=== PATIENT | female | born 1990 | race Caucasian/White ===

== ENCOUNTER 2017-06-16 17:31 | Emergency (ER) | payer OTHER ==
[~2017-06-16] VITALS: Ht 154.9 cm; Wt 56.1 kg
[~2017-06-16 17:31] MED LIST: ACET500T33 PO; ALPR0.5T10 PO; AMOX1TAB61 PO; CLAR500T3 PO; DESL5TAB PO; FLUT1DIS IH; IBUP200C6 PO; MEDR150D3 IM; PRED10TA16 PO; PRED5POW MC; allergy shots
[2017-06-16 17:51] VITALS: BP 120/76
--- NOTE | 2017-06-16 18:41 | PHYS DOC ---
Past History Past Medical History: No Pertinent History Additional Past Medical Histor: back/jaw pain seasional allergies Past Surgical History: No Surgical History Additional Past Surgical Histo: eye Smoking: Cigarettes Additional Smoking Information: PACK A DAY Alcohol Use: Rarely Drug Use: None Adult General Chief Complaint Chief Complaint: MULTIPLE COMPLAINTS [facility] HPI 26-year-old female smoker who presents to the emergency department with her son is being seen for an insect bite. Miss haddad checked in because she's had a dry cough which is improving over the last 2 days. She states that sometimes worse when she lays down. She is not short of breath. She states he sometimes has some chest wall soreness when she coughs but she does not have exertional chest pain nor does she have pleuritic pain. She is not short of breath at rest. She has no productive cough or fever. She does still smoke daily. She describes that the cough is definitely improving. Patient has not taken any cough medicines. No fevers chills sweats or shaking chills. No headache or stiff neck. Review of Systems Review of Systems Constitutional: Denies fever or chills [] Eyes: Denies change in visual acuity, redness, or eye pain [] HENT: Denies nasal congestion or sore throat [] Respiratory: Denies cough or shortness of breath [] Cardiovascular: No additional information not addressed in HPI [] GI: Denies abdominal pain, nausea, vomiting, bloody stools or diarrhea [] : Denies dysuria or hematuria [] Musculoskeletal: Denies back pain or joint pain [] Integument: Denies rash or skin lesions [] Neurologic: Denies headache, focal weakness or sensory changes [] Endocrine: Denies polyuria or polydipsia [] Allergies Allergies Allergies Coded Allergies Type Severity Reaction Last Updated Verified No Known Drug Allergies 01/31/14 No Physical Exam Physical Exam O appearing patient. Clear lungs respiratory rate 98% pulse ox on room air. Completely benign exam Constitutional: Well developed, well nourished, no acute distress, non-toxic appearance. [] HENT: Normocephalic, atraumatic, bilateral external ears normal, oropharynx moist, no oral exudates, nose normal. [] Eyes: PERRLA, EOMI, conjunctiva normal, no discharge. [] Neck: Normal range of motion, no tenderness, supple, no stridor. [] Cardiovascular:Heart rate regular rhythm, no murmur [] Lungs & Thorax: Bilateral breath sounds clear to auscultation [] Abdomen: Bowel sounds normal, soft, no tenderness, no masses, no pulsatile masses. [] Skin: Warm, dry, no erythema, no rash. [] Back: No tenderness, no CVA tenderness. [] Extremities: No tenderness, no cyanosis, no clubbing, ROM intact, no edema. [] Neurologic: Alert and oriented X 3, normal motor function, normal sensory function, no focal deficits noted. [] Psychologic: Affect normal, judgement normal, mood normal. [] Current Patient Data Vital Signs Vital Signs Date Time Temp Pulse Resp B/P (MAP) Pulse Ox O2 Delivery O2 Flow Rate FiO2 06/16/17 17:51 98.3 81 20 98 Room Air EKG EKG [] Radiology/Procedures Radiology/Procedures [] Course & Med Decision Making Course & Med Decision Making Pertinent Labs and Imaging studies reviewed. (See chart for details) Signs and symptoms consistent with very mild bronchitis and resultant mild chest wall soreness with cough only in a well-appearing patient with normal respiratory rate and pulse ox clear lungs no coughing whatsoever in ED. Recommended to patient that she take Mucinex DM [id number] as needed and to quit smoking. No further workup or treatment indicated.. Patient agrees with outpatient follow-up and strict return precautions given [] Dragon Disclaimer Dragon Disclaimer This chart was dictated in whole or in part using Voice Recognition software in a busy, high-work load, and often noisy Emergency Department environment. It may contain unintended and wholly unrecognized errors or omissions. Departure Departure: Impression: Primary Impression: Tobacco abuse Additional Impressions: Bronchitis Bronchitis due to tobacco use Chest wall muscle strain Disposition: HOME, SELF-CARE Condition: STABLE Referrals: SANDRA STOKES MD (PCP) Additional Instructions: As we discussed at length, it is critically important that you quit smoking for your long-term health as well as for the health of your child and others around you. It appears that your cough which is now improving as a result of bronchitis likely a result of your smoking. If you find you have cough use over- the-counter Mucinex DM. This has guaifenesin which helps break up any mucus in your lungs and dextromethorphan which help suppress cough. This is for symptomatic treatment only if you feel he needed help with your cough and congestion. Follow-up with your doctor in 1-2 days and return immediately for new severe or worsening symptoms Problem Qualifiers YEIMY BRASHER MD Jun 16, 2017 18:41
== END 2017-06-16 18:53 | disposition home or self-care (01) ==
LOC: ER 17:31
DX: J40 Bronchitis, not specified as acute or chronic (principal); S29.011A Strain of muscle and tendon of front wall of thorax, initial encounter; F17.210 Nicotine dependence, cigarettes, uncomplicated; X58.XXXA Exposure to other specified factors, initial encounter; Y93.89 Activity, other specified; Y99.8 Other external cause status; Y92.89 Other specified places as the place of occurrence of the external cause
CPT/HCPCS: 99281

== ENCOUNTER 2019-09-17 14:42 | Emergency (ER) | payer BC, OTHER ==
[~2019-09-17] VITALS: Ht 154.9 cm; Wt 72.5 kg
[~2019-09-17 14:42] MED LIST changes: +IBUP-1390 PO; -IBUP200C6 PO
[2019-09-17] MEDS ORDERED: CIPR7.5D LEFT EAR (15:03)
--- NOTE | 2019-09-17 15:05 | PHYS DOC ---
Adult General Chief Complaint Chief Complaint ear trauma HPI HPI 28 years old female presented emergency department foreign-body object went in the right ear foreign body was removed immediately patient noticed some blood no change in hearing Review of Systems Review of Systems Constitutional: Denies fever or chills [] Eyes: Denies change in visual acuity, redness, or eye pain [] HENT: Denies nasal congestion or sore throat [] Respiratory: Denies cough or shortness of breath [] Cardiovascular: No additional information not addressed in HPI [] GI: Denies abdominal pain, nausea, vomiting, bloody stools or diarrhea [] : Denies dysuria or hematuria [] Musculoskeletal: Denies back pain or joint pain [] Integument: Denies rash or skin lesions [] Neurologic: Denies headache, focal weakness or sensory changes [] Endocrine: Denies polyuria or polydipsia [] All other systems were reviewed and found to be within normal limits, except as documented in this note. Allergies Allergies Allergies Coded Allergies Type Severity Reaction Last Updated Verified No Known Drug Allergies 09/17/19 No Physical Exam Physical Exam Constitutional: Well developed, well nourished, no acute distress, non-toxic appearance. [] HENT: Normocephalic, atraumatic, dry blood in the right ear canal unable to evaluate the tympanic membrane due to blood oropharynx moist, no oral exudates, nose normal. [] Eyes: PERRLA, EOMI, conjunctiva normal, no discharge. [] Neck: Normal range of motion, no tenderness, supple, no stridor. [] Cardiovascular:Heart rate regular rhythm, no murmur [] Lungs & Thorax: Bilateral breath sounds clear to auscultation [] Abdomen: Bowel sounds normal, soft, no tenderness, no masses, no pulsatile masses. [] Skin: Warm, dry, no erythema, no rash. [] Back: No tenderness, no CVA tenderness. [] Extremities: No tenderness, no cyanosis, no clubbing, ROM intact, no edema. [] Neurologic: Alert and oriented X 3, normal motor function, normal sensory function, no focal deficits noted. [] Psychologic: Affect normal, judgement normal, mood normal. [] EKG EKG [] Radiology/Procedures Radiology/Procedures [] Course & Med Decision Making Course & Med Decision Making Pertinent Labs and Imaging studies reviewed. (See chart for details) [] Final Impression Final Impression [] Problems: (1) Trauma of ear canal Qualifiers: Qualified Codes: S09.91XA - Unspecified injury of ear, initial encounter Dragon Disclaimer Dragon Disclaimer This electronic medical record was generated, in whole or in part, using a voice recognition dictation system. DAPHNIE HADDAD MD Sep 17, 2019 15:05
[2019-09-17 15:35] VITALS: BP 111/80
== END 2019-09-17 15:35 | disposition home or self-care (01) ==
LOC: ER 14:42
DX: S09.91XA Unspecified injury of ear, initial encounter (principal); X58.XXXA Exposure to other specified factors, initial encounter; Y93.89 Activity, other specified; Y92.89 Other specified places as the place of occurrence of the external cause; Y99.8 Other external cause status
CPT/HCPCS: 99283

== ENCOUNTER 2020-01-21 09:35 | Emergency (ER) | payer SELFPAY ==
[~2020-01-21] VITALS: Ht 152.4 cm; Wt 74.8 kg
[~2020-01-21 09:35] MED LIST changes: +CIPR7.5D LEFT EAR
[2020-01-21 09:44] VITALS: BP 111/63
[2020-01-21] MEDS ORDERED: CLINDAMYCIN HCL 150 MG CAPSULE ONE (09:54)
[2020-01-21] MEDS ORDERED: NEOMY/BACITR/POLYMYXIN OINT PACKET. TP ONE ×2 (09:54→10:00)
[2020-01-21] MEDS ORDERED: CLIN300C8 PO (09:54)
--- NOTE | 2020-01-21 09:54 | PHYS DOC ---
Past History Additional Past Medical Histor: back/jaw pain seasional allergies Past Surgical History: Other Additional Past Surgical Histo: eye Smoking: Cigarettes Alcohol Use: Rarely Drug Use: None General Adult EDM: Chief Complaint: SKIN PROBLEM HPI: HPI: 29-year-old female presents with report of "spider bite" to her right anterior abdomen. Patient denies actually seeing an insect. Reports has had a central a edi with surrounding redness which is progressively gotten worse. Reports his been using alcohol on the area and some dribbling atraumatic ointment and a Band-Aid. Reports was able to express some purulent material from the center of it. Denies fever or chills. Denies . Review of Systems: Review of Systems: Constitutional: Denies fever or chills Eyes: Denies redness or eye pain HENT: Denies nasal congestion or sore throat Respiratory: Denies cough or shortness of breath Cardiovascular: Denies chest pain or palpitations GI: Denies abdominal pain or vomiting; reports nausea : Denies dysuria or hematuria Musculoskeletal: Denies back pain or joint pain Integument: Reports redness to abdomen Neurologic: Denies headache, focal weakness or sensory changes Complete systems were reviewed and found to be within normal limits, except as documented in this note. Allergies: Allergies: Allergies Coded Allergies Type Severity Reaction Last Updated Verified No Known Drug Allergies 09/17/19 No Physical Exam: PE: Constitutional: Well developed, well nourished, no acute distress, non-toxic appearance HENT: Normocephalic, atraumatic Eyes: Conjunctiva normal, no discharge Neck: Normal range of motion, supple Lungs & Thorax: No respiratory distress, equal chest rise and fall Abdomen: Soft, no tenderness, right lower quadrant 2 cm central indurated area with surrounding 4 cm erythema consistent for abscess with surrounding celluli tis Skin: Warm, dry, abscess with surrounding cellulitis as above which upon expression did produce some purulent discharge Neurologic: Alert and oriented X 3, no focal deficits noted Psychologic: Affect normal, judgment normal Current Patient Data: Vital Signs: Vital Signs Date Time Temp Pulse Resp B/P (MAP) Pulse Ox O2 Delivery O2 Flow Rate FiO2 01/21/20 09:44 97.4 75 18 111/63 (79) 99 Room Air EKG: EKG: [] Radiology/Procedures: Radiology/Procedures: [] Course & Med Decision Making: Course & Med Decision Making Patient presents with history of present illness and physical exam consistent for abscess with surrounding cellulitis. Abscess is currently draining. No fluctuance appreciated. Wound cleaned and dressed with antibiotic ointment. Empiric oral antibiotic initiated. Patient stable for discharge with outpatient follow-up with PCP. Discussed findings and plan with patient, who acknowledges understanding and agreement. Griselda Disclaimer: Dragmarcellus Disclaimer: This electronic medical record was generated, in whole or in part, using a voice recognition dictation system. Departure Departure: Impression: Primary Impression: Cellulitis and abscess of trunk Disposition: HOME, SELF-CARE Condition: STABLE Referrals: PCP,SAMUEL (PCP) Patient Instructions: Abscess, [id number], Cellulitis, [id number] Additional Instructions: Do not soak your wound. You may shower. Clean wound daily with soap and water. Change dressing 2 times daily. Use over the counter antibiotic ointment with each dressing change. Scripts Clindamycin Hcl (CLINDAMYCIN HCL) 300 Mg Capsule 1 CAP PO TID for Abscess/Cellulitis for 10 Days, #30 CAP Prov: YEIMY MENDEZ DO 01/21/20 YEIMY MENDEZ DO Jan 21, 2020 09:54
[2020-01-21] MEDS ORDERED: CLINDAMYCIN HCL 150 MG CAPSULE PO ONE (10:00)
== END 2020-01-21 10:00 | disposition home or self-care (01) ==
LOC: ER 09:35
DX: L03.311 Cellulitis of abdominal wall (principal); L02.211 Cutaneous abscess of abdominal wall; F17.210 Nicotine dependence, cigarettes, uncomplicated
CPT/HCPCS: 99283

== ENCOUNTER 2020-03-01 12:45 | Emergency (ER) | payer MEDICAID ==
[~2020-03-01] VITALS: Ht 152.4 cm; Wt 63.6 kg
[~2020-03-01 12:45] MED LIST changes: +CLIN300C8 PO
[2020-03-01 13:08] VITALS: BP 115/63
[2020-03-01 13:46] LABS: BILIRUBIN,URINE NEG (NEG); CLARITY,URINE HAZY; COLOR,URINE YELLOW; GLUCOSE,URINE NEG (NEG); NITRITE,URINE NEG (NEG); UROBILINOGEN,URINE 0.2 mg/dL (0.2 mg/dL)
[2020-03-01 13:47] LABS: BACTERIA,URINE FEW /HPF (0-FEW); SQUAMOUS EPITHELIAL CELL,UR FEW /LPF; WBC,URINE 20-40 /HPF (0-4)
[2020-03-01 13:48] LABS: BASO % 0 % (0-3); EOS % 0 % (0-3); HEMATOCRIT 37.3 % (36.0-47.0); HEMOGLOBIN 12.6 g/dL (12.0-15.5); LYMPH # 1.8 x10^3/uL (1.0-4.8); LYMPH % 24 % (24-48); MEAN CORPUSCULAR HEMOGLOBIN 30 pg (25-35); MEAN CORPUSCULAR HGB CONC 34 g/dL (31-37); MEAN CORPUSCULAR VOLUME 89 fL (79-100); MONO # 0.5 x10^3/uL (0.0-1.1); MONO % 7 % (0-9); NEUT # 5.1 x10^3uL (1.8-7.7); NEUT % 69 % (31-73); PLATELET COUNT 215 x10^3/uL (140-400); RED CELL DISTRIBUTION WIDTH 13.1 % (11.5-14.5); WHITE BLOOD COUNT 7.4 x10^3/uL (4.0-11.0)
[2020-03-01 13:55] LABS: CALCIUM 8.8 mg/dL (8.5-10.1); CREATININE 0.6 mg/dL (0.6-1.0); GFR 117.4; POTASSIUM 3.8 mmol/L (3.5-5.1)
[2020-03-01 14:02] LABS: ALBUMIN 3.7 g/dL (3.4-5.0); ALBUMIN/GLOBULIN RATIO 0.9 (1.0-1.7); TOTAL BILIRUBIN 0.2 mg/dL (0.2-1.0); TOTAL PROTEIN 7.6 g/dL (6.4-8.2)
--- NOTE | 2020-03-01 14:37 | PHYS DOC ---
Past History Past Medical History: No Pertinent History Additional Past Medical Histor: back/jaw pain seasional allergies Past Surgical History: No Surgical History Additional Past Surgical Histo: eye Smoking: Cigarettes Alcohol Use: None Drug Use: None General Adult EDM: Chief Complaint: TEST HPI: HPI: Patient is a 29-year-old female who presents with complaint of lower abdominal pressure with some vaginal spotting. She denies any vaginal discharge. She states that she has been having some queasiness and states that she felt like she could be so took a test at home. She states the test returned positive. Patient states that she is not sure how long she is because she was on Depo-Provera for a long time and she has been very irregular since that time. Patient denies any vomiting or diarrhea. [] Review of Systems: Review of Systems: Constitutional: Denies fever or chills Respiratory: Denies cough or shortness of breath Cardiovascular: Denies chest pain or edema GI: Complains of lower abdominal pressure without vomiting or diarrhea : Denies dysuria. Complains of vaginal spotting Integument: Denies rash Neurologic: Denies headache, focal weakness or sensory changes A full 10 point review of systems has been reviewed and is otherwise negative. Heart Score: Risk Factors: Risk Factors: DM, Current or recent (<one month) smoker, HTN, HLP, family history of CAD, obesity. Risk Scores: Score 0 - 3: 2.5% MACE over next 6 weeks - Discharge Home Score 4 - 6: 20.3% MACE over next 6 weeks - Admit for Clinical Observation Score 7 - 10: 72.7% MACE over next 6 weeks - Early Invasive Strategies Allergies: Allergies: Allergies Coded Allergies Type Severity Reaction Last Updated Verified No Known Drug Allergies 09/17/19 No Physical Exam: PE: Constitutional: Well developed, well nourished, no acute distress, non-toxic appearance. [] HENT: Normocephalic, atraumatic, bilateral external ears normal, oropharynx moist, no oral exudates, nose normal. [] Eyes: PERRLA, EOMI, conjunctiva normal, no discharge. [] Neck: Normal range of motion, no tenderness, supple, no stridor. [] Cardiovascular: Regular rate and rhythm [] Lungs & Thorax: Bilateral breath sounds clear to auscultation [] Abdomen: Bowel sounds normal, soft, no tenderness. [] Skin: Warm, dry, no erythema, no rash. [] Extremities: No tenderness, no cyanosis, no clubbing, ROM intact, no edema. [] Neurologic: Alert and oriented X 3, no focal deficits noted. [] Current Patient Data: Labs: Laboratory Tests Test 03/01/20 13:00 03/01/20 13:27 03/01/20 13:35 Urine Collection Type Unknown Urine Color Yellow Urine Clarity Hazy Urine pH 6.5 Urine Specific [place] 1.020 Urine Protein Neg (NEG-TRACE) Urine Glucose (UA) Neg mg/dL (NEG) Urine Ketones (Stick) Neg mg/dL (NEG) Urine Blood Neg (NEG) Urine Nitrite Neg (NEG) Urine Bilirubin Neg (NEG) Urine Urobilinogen Dipstick 0.2 mg/dL (0.2 mg/dL) Urine Leukocyte Esterase Mod (NEG) Urine RBC 3-5 /HPF (0-2) Urine WBC 20-40 /HPF (0-4) Urine Squamous Epithelial Cells Few /LPF Urine Bacteria Few /HPF (0-FEW) Urine Mucus Slight /LPF POC Urine HCG, Qualitative hcg positive (Negative) White Blood Count 7.4 x10^3/uL (4.0-11.0) Red Blood Count 4.20 x10^6/uL (3.50-5.40) Hemoglobin 12.6 g/dL (12.0-15.5) Hematocrit 37.3 % (36.0-47.0) Mean Corpuscular Volume 89 fL (79-100) Mean Corpuscular Hemoglobin 30 pg (25-35) Mean Corpuscular Hemoglobin Concent 34 g/dL (31-37) Red Cell Distribution Width 13.1 % (11.5-14.5) Platelet Count 215 x10^3/uL (140-400) Neutrophils (%) (Auto) 69 % (31-73) Lymphocytes (%) (Auto) 24 % (24-48) Monocytes (%) (Auto) 7 % (0-9) Eosinophils (%) (Auto) 0 % (0-3) Basophils (%) (Auto) 0 % (0-3) Neutrophils # (Auto) 5.1 x10^3uL (1.8-7.7) Lymphocytes # (Auto) 1.8 x10^3/uL (1.0-4.8) Monocytes # (Auto) 0.5 x10^3/uL (0.0-1.1) Eosinophils # (Auto) 0.0 x10^3/uL (0.0-0.7) Basophils # (Auto) 0.0 x10^3/uL (0.0-0.2) Maternal Serum HCG Beta Subunit 5817 mIU/mL (0-6) H Sodium Level 137 mmol/L (136-145) Potassium Level 3.8 mmol/L (3.5-5.1) Chloride Level 102 mmol/L (98-107) Carbon Dioxide Level 25 mmol/L (21-32) Anion Gap 10 (6-14) Blood Urea Nitrogen 8 mg/dL (7-20) Creatinine 0.6 mg/dL (0.6-1.0) Estimated GFR (Cockcroft-Gault) 117.4 BUN/Creatinine Ratio 13 (6-20) Glucose Level 90 mg/dL (70-99) Calcium Level 8.8 mg/dL (8.5-10.1) Total Bilirubin 0.2 mg/dL (0.2-1.0) Aspartate Amino Transferase (AST) 13 U/L (15-37) L Alanine Aminotransferase (ALT) 20 U/L (14-59) Alkaline Phosphatase 64 U/L (46-116) Total Protein 7.6 g/dL (6.4-8.2) Albumin 3.7 g/dL (3.4-5.0) Albumin/Globulin Ratio 0.9 (1.0-1.7) L Vital Signs: Vital Signs Date Time Temp Pulse Resp B/P (MAP) Pulse Ox O2 Delivery O2 Flow Rate FiO2 03/01/20 13:08 97.8 79 18 115/63 (80) 99 EKG: EKG: [] Radiology/Procedures: Radiology/Procedures: [] Course & Med Decision Making: Course & Med Decision Making Pertinent Labs and Imaging studies reviewed. (See chart for details) [] Dragon Disclaimer: Dragon Disclaimer: This electronic medical record was generated, in whole or in part, using a voice recognition dictation system. Departure Departure: Impression: Primary Impression: Positive blood test Disposition: HOME/RESIDENCE PRIOR TO ADM Condition: STABLE Referrals: PCP,NO (PCP) Patient Instructions: Abdominal Pain During , Form - Excuse from Work, School, or Physical Activity, , - First Trimester, Vaginal Bleeding During , First Trimester Additional Instructions: Keep appointment with health department for this coming week. I would recommend repeat quantitative hCG testing at that time. Justification of Admission: Justification of Admission: Justification of Admission Dx: N/A JOSÉ MIGUEL BOB Jr., DO Mar 01, 2020 14:37
== END 2020-03-01 14:23 | disposition home or self-care (01) ==
LOC: ER 12:45
DX: Z32.01 Encounter for pregnancy test, result positive (principal); O46.91 Antepartum hemorrhage, unspecified, first trimester; Z3A.00 Weeks of gestation of pregnancy not specified; O99.331 Smoking (tobacco) complicating pregnancy, first trimester
CPT/HCPCS: 36415; 80053; 81001; 81025; 84702; 85025; 87086; 99283

== ENCOUNTER 2020-03-06 08:54 | Emergency (ER) | payer MEDICAID ==
[~2020-03-06] VITALS: Ht 152.4 cm; Wt 70.1 kg
--- NOTE | 2020-03-06 09:11 | PHYS DOC ---
Past History Past Medical History: No Pertinent History Additional Past Medical Histor: back/jaw pain seasional allergies Past Surgical History: No Surgical History Additional Past Surgical Histo: eye Smoking: Cigarettes Alcohol Use: None Drug Use: None General Adult EDM: Chief Complaint: ABDOMINAL PAIN IN HPI: HPI: Patient is a 29-year-old female, who is , who presents to the emergency department for evaluation. She states she was seen in the emergency department this past weekend, with some abdominal cramping and vaginal spotting. Test results and ER visit note have been reviewed. The patient states that she has been doing more work at her job site than normal, secondary to her employer hiring some temporary help, putting more over the burden on her. She states that she feels that she overdid it last night and developed some increasing lower abdominal cramping, and some increased vaginal spotting this morning. She also admits to some whitish vaginal discharge. She denies any fevers or chills, dizziness or lightheadedness. She does feel generally fatigued. She is uncertain how far along she is this , she states she last received a Depo-Provera injection about a year ago, after she gave to another child, and has not had regular periods since that time. Her beta-hCG was over 5000 when she was in the emergency department recently. She has an appointment scheduled for her first [facility] REMOVER visit at [facility] next week. There are no alleviating or exacerbating factors to her symptoms. Review of Systems: Review of Systems: Constitutional: Denies fever or chills. Reports generalized fatigue Eyes: Denies change in visual acuity HENT: Denies nasal congestion or sore throat Respiratory: Denies cough or shortness of breath Cardiovascular: Denies chest pain or edema GI: Denies , nausea, vomiting, bloody stools or diarrhea : Denies dysuria Musculoskeletal: Denies back pain or joint pain Integument: Denies rash Neurologic: Denies headache, focal weakness or sensory changes Endocrine: Denies polyuria or polydipsia Lymphatic: Denies swollen glands Psychiatric: Denies depression or anxiety Heart Score: Risk Factors: Risk Factors: DM, Current or recent (<one month) smoker, HTN, HLP, family history of CAD, obesity. Risk Scores: Score 0 - 3: 2.5% MACE over next 6 weeks - Discharge Home Score 4 - 6: 20.3% MACE over next 6 weeks - Admit for Clinical Observation Score 7 - 10: 72.7% MACE over next 6 weeks - Early Invasive Strategies Allergies: Allergies: Allergies Coded Allergies Type Severity Reaction Last Updated Verified No Known Drug Allergies 03/06/20 No Physical Exam: PE: PHYSICAL EXAM: CONSTITUTIONAL: Well developed, well nourished HEAD: normocephalic, atraumatic EENT: PERRL, EOMI. Conjunctivae normal color, sclerae non-icteric; moist mucous membranes. NECK: Supple, non-tender; no meningismus. LUNGS: Lungs CTA, breathing even and unlabored. Normal air movement. HEART: Regular rate and rhythm, no murmur CHEST: No deformity; non-tender ABDOMEN: The abdomen is soft, there is mild diffuse lower abdominal tenderness to palpation, without focal tenderness, rebound, or guarding, the remainder of the abdomen is soft and non-tender, no masses or bruits. EXTREM: Normal ROM; no deformity, no calf tenderness. Normal pulses palpable in all extremities. There is no pedal edema. SKIN: No rash; no diaphoresis NEURO: Alert; normal speech and cognition; CN's grossly intact; strength grossly intact without focal deficit. BACK: No CVA TTP. PELVIC EXAM: Normal external genitalia. There is a moderate amount of whitish frothy vaginal discharge, with a trace amount of cervical blood, the cervix otherwise appears normal. There is no significant cervical motion tenderness, or focal adnexal or suprapubic/uterine tenderness to palpation or palpable masses. Exam was performed in the presence of the patient's nurse, Pam. Current Patient Data: Labs: Laboratory Tests Test 03/06/20 09:28 03/06/20 09:50 White Blood Count 6.6 x10^3/uL Red Blood Count 4.16 x10^6/uL Hemoglobin 12.6 g/dL Hematocrit 36.8 % Mean Corpuscular Volume 88 fL Mean Corpuscular Hemoglobin 30 pg Mean Corpuscular Hemoglobin Concent 34 g/dL Red Cell Distribution Width 13.2 % Platelet Count 194 x10^3/uL Neutrophils (%) (Auto) 69 % Lymphocytes (%) (Auto) 23 % Monocytes (%) (Auto) 7 % Eosinophils (%) (Auto) 1 % Basophils (%) (Auto) 0 % Neutrophils # (Auto) 4.6 x10^3uL Lymphocytes # (Auto) 1.5 x10^3/uL Monocytes # (Auto) 0.5 x10^3/uL Eosinophils # (Auto) 0.0 x10^3/uL Basophils # (Auto) 0.0 x10^3/uL Maternal Serum HCG Beta Subunit 3208 mIU/mL Sodium Level 139 mmol/L Potassium Level 3.8 mmol/L Chloride Level 104 mmol/L Carbon Dioxide Level 27 mmol/L Anion Gap 8 Blood Urea Nitrogen 11 mg/dL Creatinine 0.6 mg/dL Estimated GFR (Cockcroft-Gault) 117.4 Glucose Level 95 mg/dL Calcium Level 8.9 mg/dL Total Bilirubin 0.5 mg/dL Direct Bilirubin 0.2 mg/dL Aspartate Amino Transf (AST/SGOT) 16 U/L Alanine Aminotransferase (ALT/SGPT) 23 U/L Alkaline Phosphatase 67 U/L Total Protein 7.7 g/dL Albumin 3.7 g/dL Urine Collection Type Unknown Urine Color Straw Urine Clarity Hazy Urine pH 7.0 Urine Specific [place] 1.015 Urine Protein Neg Urine Glucose (UA) Neg mg/dL Urine Ketones (Stick) Neg mg/dL Urine Blood Mod Urine Nitrite Neg Urine Bilirubin Neg Urine Urobilinogen Dipstick 0.2 mg/dL Urine Leukocyte Esterase Large Urine RBC 6-10 /HPF Urine WBC 5-10 /HPF Urine Squamous Epithelial Cells Many /LPF Urine Bacteria Few /HPF EKG: EKG: [] Radiology/Procedures: Radiology/Procedures: PROCEDURE: OB <14 WKS EXAMINATION: OB <14 WKS, 03/06/2020 9:06 AM CLINICAL INDICATION: Vaginal spotting, pelvic pain. LMP unknown. TECHNIQUE: Grayscale and color Doppler ultrasound images of the pelvis via transabdominal and transvaginal approach her first trimester OB protocol. COMPARISON: None. FINDINGS: The uterus is anteverted and measures 9.1 x 5.2 x 4.4 cm. There is a gestational sac measuring 1.7 cm, consistent with a gestational age of 6 weeks 4 days. No embryo or yolk sac seen at this time. No subchorionic hemorrhage noted. The right ovary measures 2.4 x 2.1 x 1.6 cm. The left ovary measures 2.9 x 2.1 x 1.6 cm. There is blood flow seen to both ovaries. There is a 1.4 x 1.2 x 1.4 cm echogenic mass in the left adnexa immediately adjacent to the left ovary. This has some shadowing. No internal vascularity. No free fluid. IMPRESSION: 1. Intrauterine of uncertain viability with gestational sac measuring 1.7 cm but no embryo or yolk sac at this time. Based on gestational sac size, this is consistent with a gestational age of 6 weeks 4 days. Recommend short interval follow-up ultrasound and correlation with serial beta hCG. 2. Possible 1.4 cm echogenic mass in the left ovary or adnexa immediately adjacent to the ovary. A small dermoid cyst is possible. Recommend attention on follow-up exam[] Course & Med Decision Making: Course & Med Decision Making Pertinent Labs and Imaging studies reviewed. (See chart for details) The patient's condition remains stable at this time. Given her drop in beta- hCG, I suspect that the findings represent a failed gestation. I discussed importance of close follow-up with VARNISH REMOVER and return precautions in detail. [] WET PREP Final YEAST NONE SEEN TRICHOMONAS NONE SEEN CLUE CELLS NONE SEEN WBCS OCCASIONAL RBCS MODERATE SQUAMOUS EPS OCCASIONAL Dragon Disclaimer: Dragon Disclaimer: This electronic medical record was generated, in whole or in part, using a voice recognition dictation system. Departure Departure: Impression: Primary Impression: Vaginal bleeding during Additional Impression: Threatened miscarriage Disposition: 01 HOME/RESIDENCE PRIOR TO ADM Condition: STABLE Patient Instructions: Incomplete Miscarriage, Threatened Miscarriage Additional Instructions: Tylenol as needed for pain. Follow-up with your VARNISH REMOVER as scheduled next week. Return to medical care for any new or worsening symptoms, severe bleeding, pain, dizziness or lightheadedness, or any other new or concerning symptoms Justification of Admission: Justification of Admission: Justification of Admission Dx: N/A AILYN MELENDEZ MD Mar 06, 2020 09:11
[2020-03-06 09:53] LABS: BASO % 0 % (0-3); EOS % 1 % (0-3); HEMATOCRIT 36.8 % (36.0-47.0); HEMOGLOBIN 12.6 g/dL (12.0-15.5); LYMPH # 1.5 x10^3/uL (1.0-4.8); LYMPH % 23 % (24-48); MEAN CORPUSCULAR HEMOGLOBIN 30 pg (25-35); MEAN CORPUSCULAR HGB CONC 34 g/dL (31-37); MEAN CORPUSCULAR VOLUME 88 fL (79-100); MONO # 0.5 x10^3/uL (0.0-1.1); MONO % 7 % (0-9); NEUT # 4.6 x10^3uL (1.8-7.7); NEUT % 69 % (31-73); PLATELET COUNT 194 x10^3/uL (140-400); RED BLOOD COUNT 4.16 x10^6/uL (3.50-5.40); RED CELL DISTRIBUTION WIDTH 13.2 % (11.5-14.5); WHITE BLOOD COUNT 6.6 x10^3/uL (4.0-11.0)
[2020-03-06 10:01] LABS: CALCIUM 8.9 mg/dL (8.5-10.1); CREATININE 0.6 mg/dL (0.6-1.0); GFR 117.4; POTASSIUM 3.8 mmol/L (3.5-5.1)
[2020-03-06 10:09] LABS: ALBUMIN 3.7 g/dL (3.4-5.0); DIRECT BILIRUBIN 0.2 mg/dL (0.0-0.2); TOTAL BILIRUBIN 0.5 mg/dL (0.2-1.0); TOTAL PROTEIN 7.7 g/dL (6.4-8.2)
--- NOTE | 2020-03-06 10:15 | RAD ---
EXAMINATION: OB <14 WKS, 03/06/2020 9:06 AM CLINICAL INDICATION: Vaginal spotting, pelvic pain. LMP unknown. TECHNIQUE: Grayscale and color Doppler ultrasound images of the pelvis via transabdominal and transvaginal approach her first trimester OB protocol. COMPARISON: None. FINDINGS: The uterus is anteverted and measures 9.1 x 5.2 x 4.4 cm. There is a gestational sac measuring 1.7 cm, consistent with a gestational age of 6 weeks 4 days. No embryo or yolk sac seen at this time. No subchorionic hemorrhage noted. The right ovary measures 2.4 x 2.1 x 1.6 cm. The left ovary measures 2.9 x 2.1 x 1.6 cm. There is blood flow seen to both ovaries. There is a 1.4 x 1.2 x 1.4 cm echogenic mass in the left adnexa immediately adjacent to the left ovary. This has some shadowing. No internal vascularity. No free fluid. IMPRESSION: 1. Intrauterine of uncertain viability with gestational sac measuring 1.7 cm but no embryo or yolk sac at this time. Based on gestational sac size, this is consistent with a gestational age of 6 weeks 4 days. Recommend short interval follow-up ultrasound and correlation with serial beta hCG. 2. Possible 1.4 cm echogenic mass in the left ovary or adnexa immediately adjacent to the ovary. A small dermoid cyst is possible. Recommend attention on follow-up exam Electronically signed by: Vanessa Pinzon MD (03/06/2020 10:12 AM) [id number]
[2020-03-06 10:23] LABS: BACTERIA,URINE FEW /HPF (0-FEW); BILIRUBIN,URINE NEG (NEG); CLARITY,URINE HAZY; COLOR,URINE STRAW; GLUCOSE,URINE NEG (NEG); NITRITE,URINE NEG (NEG); SQUAMOUS EPITHELIAL CELL,UR MANY /LPF; UROBILINOGEN,URINE 0.2 mg/dL (0.2 mg/dL)
[2020-03-06 10:56] VITALS: BP 138/97
[2020-03-07 17:12] LABS: CHLAMYDIA PROBE Negative (Negative)
[2020-03-07] MEDS ORDERED: OXYC-325 PO (22:38)
== END 2020-03-06 10:57 | disposition home or self-care (01) ==
LOC: ER 08:54
DX: O20.0 Threatened abortion (principal); O99.331 Smoking (tobacco) complicating pregnancy, first trimester; Z3A.01 Less than 8 weeks gestation of pregnancy
CPT/HCPCS: 36415; 76801; 80048; 80076; 81001; 84702; 85025; 86900; 86901; 87086; 87491; 87591; 99284; Q0111

== ENCOUNTER 2020-03-07 16:57 | Emergency (ER) | payer MEDICAID ==
[~2020-03-07] VITALS: Ht 152.4 cm; Wt 70.1 kg
[2020-03-07] MEDS ORDERED: IV NORMAL SALINE 1,000ML 1,000 ML IV ONE (17:15)
[2020-03-07 17:46] LABS: BASO % 0 % (0-3); EOS % 0 % (0-3); HEMATOCRIT 34.6 % (36.0-47.0); HEMOGLOBIN 11.7 g/dL (12.0-15.5); LYMPH % 28 % (24-48); MEAN CORPUSCULAR HEMOGLOBIN 30 pg (25-35); MEAN CORPUSCULAR HGB CONC 34 g/dL (31-37); MEAN CORPUSCULAR VOLUME 89 fL (79-100); MONO # 0.5 x10^3/uL (0.0-1.1); MONO % 6 % (0-9); NEUT # 4.6 x10^3uL (1.8-7.7); NEUT % 65 % (31-73); PLATELET COUNT 219 x10^3/uL (140-400); RED CELL DISTRIBUTION WIDTH 13.2 % (11.5-14.5); WHITE BLOOD COUNT 7.1 x10^3/uL (4.0-11.0)
--- NOTE | 2020-03-07 17:52 | RAD ---
Exam: Ultrasound OB less than 14 weeks Indication: Heavy vaginal bleeding and Technique: Real-time grayscale and color Doppler images of the pelvis were obtained by the department cotton tier. Comparisons: 03/06/2020 FINDINGS: Uterus measures 14.0 x 6.1 x 4.7 cm. Within the endometrium at the lower uterine segment there is a 1.6 cm rounded anechoic structure. Right ovary measures 2.2 x 1.7 cm. Left ovary measures 3.3 x 2.8 x 2.0 cm. There is a hyperechoic rounded lesion within the left ovary measuring 1.7 cm. No free fluid. IMPRESSION: At the lower uterine segment in the endometrium there is a 1.6 cm rounded anechoic structure which may represent a gestational sac. This would be an abnormally low gestational sac position. No internal pole or yolk sac is identified. A live intrauterine gestation is not confirmed. Differential considerations include a failed versus an early IUP. Recommend correlation with serial beta hCG measurements and short-term follow-up ultrasound. Electronically signed by: Estela Hopkins MD (03/07/2020 5:48 PM) [id number]
--- NOTE | 2020-03-07 18:22 | PHYS DOC ---
Past History Additional Past Medical Histor: chronic back/jaw pain seasional allergies (YEIMY MENDEZ DO) Past Surgical History: Other Additional Past Surgical Histo: eye surgery (YEIMY MENDEZ DO) Smoking: Cigarettes Alcohol Use: None Drug Use: None (YEIMY MENDEZ DO) General Adult EDM: Chief Complaint: VAGINAL BLEEDING HPI: HPI: 29-year-old female G3, P2 presents with report of "heavy "vaginal bleeding that started this afternoon. Patient was here and seen in the emergency department at [place] yesterday morning for vaginal bleeding and . At that time ultrasound did not see yolk sac or pole and there was concern for possible threatened miscarriage. Patient reports she has been passing very heavy clots. Denies any dizziness or lightheadedness. Patient does report some pain to pelvic area. [facility] patient is Rh+. Beta hCG from yesterday was 3208. Patient had also been seen on 03/01/20 with some light spotting and report of home test being positive. [facility] confirmed and was found to be 5817. Patient reports she is unsure how far along she would be as she has irregular periods at baseline after being on Depo-Provera. Patient was to follow with OB at [place] next week for initial visit. (YEIMY MENDEZ DO) Review of Systems: Review of Systems: Constitutional: Denies fever or chills Eyes: Denies redness or eye pain HENT: Denies nasal congestion or sore throat Respiratory: Denies cough or shortness of breath Cardiovascular: Denies chest pain or palpitations GI: Reports lower abdominal/pelvic pain; denies nausea or vomiting CABLE DISPATCHER: Reports vaginal bleeding in : Denies dysuria or hematuria Musculoskeletal: Denies back pain or joint pain Integument: Denies rash or skin lesions Neurologic: Denies headache, focal weakness or sensory changes Complete systems were reviewed and found to be within normal limits, except as documented in this note. (YEIMY MENDEZ DO) Current Medications: Current Meds: Current Medications Medications (Trade) Dose Ordered Sig/Harley Start Time Stop Time Status Last Admin Dose Admin Sodium Chloride 1,000 ml @ 1,000 mls/hr 1X ONCE 03/07/20 17:15 03/07/20 18:14 03/07/20 17:15 1,000 MLS/HR (YEIMY MENDEZ DO) Allergies: Allergies: Allergies Coded Allergies Type Severity Reaction Last Updated Verified No Known Drug Allergies 03/06/20 No (YEIMY MENDEZ DO) Physical Exam: PE: Constitutional: Well developed, well nourished, dried blood on legs and hands HENT: Normocephalic, atraumatic Eyes: Conjunctiva normal, no discharge Neck: Normal range of motion, no tenderness, supple Lungs & Thorax: No respiratory distress, equal chest rise and fall Abdomen: Soft, mild lower quadrant tenderness, no guarding Skin: Warm, dry, no erythema, no rash Pelvic exam: 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[employer] [place], multiple large blood clots in vaginal vault, active bright red bleeding at cervical os, no retained tissue noted in os, os open, no CMT Extremities: No tenderness, ROM intact, no edema Neurologic: Alert and oriented X 3, no focal deficits noted Psychologic: Affect anxious, judgment normal (YEIMY MENDEZ DO) Current Patient Data: Labs: Laboratory Tests Test 03/07/20 17:30 White Blood Count 7.1 x10^3/uL (4.0-11.0) Red Blood Count 3.90 x10^6/uL (3.50-5.40) Hemoglobin 11.7 g/dL (12.0-15.5) L Hematocrit 34.6 % (36.0-47.0) L Mean Corpuscular Volume 89 fL (79-100) Mean Corpuscular Hemoglobin 30 pg (25-35) Mean Corpuscular Hemoglobin Concent 34 g/dL (31-37) Red Cell Distribution Width 13.2 % (11.5-14.5) Platelet Count 219 x10^3/uL (140-400) Neutrophils (%) (Auto) 65 % (31-73) Lymphocytes (%) (Auto) 28 % (24-48) Monocytes (%) (Auto) 6 % (0-9) Eosinophils (%) (Auto) 0 % (0-3) Basophils (%) (Auto) 0 % (0-3) Neutrophils # (Auto) 4.6 x10^3uL (1.8-7.7) Lymphocytes # (Auto) 2.0 x10^3/uL (1.0-4.8) Monocytes # (Auto) 0.5 x10^3/uL (0.0-1.1) Eosinophils # (Auto) 0.0 x10^3/uL (0.0-0.7) Basophils # (Auto) 0.0 x10^3/uL (0.0-0.2) Vital Signs: Vital Signs Date Time Temp Pulse Resp B/P (MAP) Pulse Ox O2 Delivery O2 Flow Rate FiO2 03/07/20 17:46 77 22 149/77 (101) 95 (YEIMY MENDEZ DO) EKG: EKG: [] (YEIMY MENDEZ DO) Radiology/Procedures: Radiology/Procedures: PROCEDURE: OB <14 WKS Exam: Ultrasound OB less than 14 weeks Indication: Heavy vaginal bleeding and Technique: Real-time grayscale and color Doppler images of the pelvis were obtained by the department building cleaner. Comparisons: 03/06/2020 FINDINGS: Uterus measures 14.0 x 6.1 x 4.7 cm. Within the endometrium at the lower uterine segment there is a 1.6 cm rounded anechoic structure. Right ovary measures 2.2 x 1.7 cm. Left ovary measures 3.3 x 2.8 x 2.0 cm. There is a hyperechoic rounded lesion within the left ovary measuring 1.7 cm. No free fluid. IMPRESSION: At the lower uterine segment in the endometrium there is a 1.6 cm rounded anechoic structure which may represent a gestational sac. This would be an abnormally low gestational sac position. No internal pole or yolk sac is identified. A live intrauterine gestation is not confirmed. Differential considerations include a failed versus an early IUP. Recommend correlation with serial beta hCG measurements and short-term follow-up ultrasound. Electronically signed by: Estela Hopkins MD (03/07/2020 5:48 PM) [id number] (YEIMY MENDEZ DO) Course & Med Decision Making: Course & Med Decision Making Pertinent Labs and Imaging studies reviewed. (See chart for details) Patient presents with HPI and physical exam consistent for active miscarriage. Patient had been seen initially on 03/01/2020 with beta-hCG of 5817. Patient was again seen yesterday with decrease in beta hCG down to 3208. Today patient's beta-hCG 2079. Ultrasounds reviewed from yesterday with signs of gestational sac without pole or yolk sac. Patient previously tested and found to be Rh+. Pelvic exam performed with excessive large blood clots noted in vaginal vault. Active bleeding still noted from cervical os. No products of conception noted in cervical os. Patient's vital signs stable. Hemoglobin decreased less than 1 g since yesterday. IV fluid hydration given. Pain addressed. Discussed case with Dr. Engel (GED TEACHER at [facility]) who recommends Oxytocin gtt and then recheck of H/H and re-evaluation for vaginal bleeding. Sign out given to Dr. Dao for further evaluation and final disposition. Discussed current findings and plan with patient, who acknowledges understanding and agreement. (YEIMY MENDEZ DO) Course & Med Decision Making See Dr. Mendez notes on pt. Pt. declined repeat pelvic at this time. Patient to follow-up with Dr. Engel. Patient expect some continued bleeding until passage of products of conception. Patient continue pad counts. Patient continue vitamins. For marked cramping patient may take a Percocet up to 4 times a day. Patient has a recheck hemoglobin in 3 days and beta-hCG. Impression: 1. Threatened 2. Anemia hemoglobin 9.6 3. Beta-hCG is 2079 4. Blood Type A+ (CAMERON DAO MD) Dragon Disclaimer: Dragon Disclaimer: This electronic medical record was generated, in whole or in part, using a voice recognition dictation system. (YEIMY MENDEZ DO) Departure Departure: Impression: Primary Impression: Miscarriage Referrals: PCP,NO (PCP) Scripts Oxycodone HCl/Acetaminophen (Percocet 5-325 mg Tablet) 1 Each Tablet 1 TAB PO PRN QID PRN for marked pain MDD 4 Tablet(s) for 5 Days, #30 TAB 0 Refills Prov: CAMERON DAO MD 03/07/20 Justification of Admission: Justification of Admission: Justification of Admission Dx: Comment: (pending) (YEIMY MENDEZ DO) Dragon Disclaimer This chart was dictated in whole or in part using Voice Recognition software in a busy, high-work load, and often noisy Emergency Department environment. It ma y contain unintended and wholly unrecognized errors or omissions. (CAMERON DAO MD) YEIMY MENDEZ DO Mar 07, 2020 18:22 CAMERON DAO MD Mar 07, 2020 18:39
[2020-03-07] MEDS ORDERED: NORMAL SALINE IV ONE (18:30)
[2020-03-07] MEDS ORDERED: OXYTOCIN IV ONE (18:30)
[2020-03-07] MEDS ORDERED: MORPHINE SULFATE 10 MG/ML SYRINGE. SQ ONE (20:15)
[2020-03-07 20:58] LABS: HEMATOCRIT 28.7 % (36.0-47.0); HEMOGLOBIN 9.6 g/dL (12.0-15.5); RED BLOOD COUNT 3.22 x10^6/uL (3.50-5.40); RED CELL DISTRIBUTION WIDTH 13.3 % (11.5-14.5); WHITE BLOOD COUNT 7.8 x10^3/uL (4.0-11.0)
[2020-03-07 22:11] VITALS: BP 110/45
[2020-03-07] MEDS ORDERED: OXYC-325 PO (22:38)
== END 2020-03-07 22:40 | disposition home or self-care (01) ==
LOC: ER 16:57
DX: O20.0 Threatened abortion (principal); O99.011 Anemia complicating pregnancy, first trimester; O99.331 Smoking (tobacco) complicating pregnancy, first trimester; G89.29 Other chronic pain; Z3A.00 Weeks of gestation of pregnancy not specified
CPT/HCPCS: 36415; 76801; 84702; 85025; 85027; 96365; 96366; 96372; 96375; 99284; J2270; J2590; J3010; J7040; J7030

== ENCOUNTER 2020-03-10 09:06 | Emergency (ER) | payer MEDICAID ==
[~2020-03-10] VITALS: Ht 152.4 cm; Wt 70.1 kg
[~2020-03-10 09:06] MED LIST changes: +OXYC-325 PO
--- NOTE | 2020-03-10 09:53 | PHYS DOC ---
Past History Past Medical History: No Pertinent History Additional Past Medical Histor: chronic back/jaw pain seasional allergies, miscarriage Past Surgical History: Other Additional Past Surgical Histo: eye surgery Smoking: Cigarettes Alcohol Use: None Drug Use: None General Adult EDM: Chief Complaint: ABDOMINAL PAIN HPI: HPI: 29-year-old female presents with abdominal pain and continued vaginal bleeding. She was diagnosed with having miscarriage a couple of days ago. She was supposed to get a repeat hCG today. When she was told at registration that the labs can be done outpatient, the patient then stated that she wanted to check in because she is still having abdominal pain. She has had some nausea and vomiting. Her appetite is decreased. She has generalized lower abdominal cramping. She denies fever or chills. Review of Systems: Review of Systems: Constitutional: Denies fever or chills Eyes: Denies change in visual acuity HENT: Denies nasal congestion or sore throat Respiratory: Denies cough or shortness of breath Cardiovascular: Denies chest pain or edema GI: Lower abdominal pain, nausea, vomiting. Denies bloody stools or diarrhea : Vaginal bleeding Musculoskeletal: Denies back pain or joint pain Integument: Denies rash Neurologic: Denies headache, focal weakness or sensory changes Endocrine: Denies polyuria or polydipsia Lymphatic: Denies swollen glands Psychiatric: Denies depression or anxiety Heart Score: Risk Factors: Risk Factors: DM, Current or recent (<one month) smoker, HTN, HLP, family history of CAD, obesity. Risk Scores: Score 0 - 3: 2.5% MACE over next 6 weeks - Discharge Home Score 4 - 6: 20.3% MACE over next 6 weeks - Admit for Clinical Observation Score 7 - 10: 72.7% MACE over next 6 weeks - Early Invasive Strategies Allergies: Allergies: Allergies Coded Allergies Type Severity Reaction Last Updated Verified No Known Drug Allergies 03/06/20 No Physical Exam: PE: Constitutional: Well developed, obese, well nourished, no acute distress, non- toxic appearance. [] HENT: Normocephalic, atraumatic, bilateral external ears normal, oropharynx moist, no oral exudates, nose normal. [] Eyes: PERRLA, EOMI, conjunctiva normal, no discharge. [] Neck: Normal range of motion, no tenderness, supple, no stridor. [] Cardiovascular:Heart rate regular rhythm, no murmur [] Lungs & Thorax: Bilateral breath sounds clear to auscultation [] Abdomen: Bowel sounds normal, soft, no tenderness, no masses, no pulsatile masses. [] Skin: Warm, dry, no erythema, no rash. [] Back: No tenderness, no CVA tenderness. [] Extremities: No tenderness, no cyanosis, no clubbing, ROM intact, no edema. [] Neurologic: Alert and oriented X 3, normal motor function, normal sensory function, no focal deficits noted. [] Psychologic: Affect normal, judgement normal, mood normal. [] Current Patient Data: Vital Signs: Vital Signs Date Time Temp Pulse Resp B/P (MAP) Pulse Ox O2 Delivery O2 Flow Rate FiO2 03/10/20 09:11 98.0 102 16 141/81 (101) 97 Room Air EKG: EKG: [] Radiology/Procedures: Radiology/Procedures: [] Impressions: EXAMINATION: Pelvic ultrasound 03/10/2020 10:56 AM INDICATION: Spontaneous , continued bleeding. TECHNIQUE: Luna scale, color and spectral Doppler ultrasound images of the pelvis were obtained via transabdominal and transvaginal approach. COMPARISON: 03/07/2020 and 03/06/2020. FINDINGS: The uterus is anteverted and measures 9.2 x 6.3 x 4.2 cm. There is a small amount of fluid in the lower uterine segment, less rounded and saclike in appearance compared to the prior exam. There is heterogeneous material in the endometrial canal at the fundus. The right ovary is not visualized. The left ovary measures 2.7 x 2.3 x 2.2 cm and have normal blood flow. IMPRESSION: Findings suspicious for failed with small amount of fluid in the endometrial canal at the lower uterine segment that is less rounded and saclike in appearance compared to prior exam and could be either an increasingly abnormal gestational sac or small amount of fluid/blood. Heterogeneous material within the endometrial canal at the fundus could be retained products of conception or blood/clot. Consider continued follow-up ultrasound and beta hCG and/or [facility] consultation. Electronically signed by: Vanessa Pinzon MD (03/10/2020 11:44 AM) [id number] DICTATED AND SIGNED BY: VANESSA PINZON MD DATE: 03/10/20 1144 CC: BURTON DAVILA DO; PCP,NO ~ Course & Med Decision Making: Course & Med Decision Making Pertinent Labs and Imaging studies reviewed. (See chart for details) The patient's labs are significant for a continued decrease in hemoglobin from 9.6-8.3. I repeated her pelvic ultrasound which shows likely retained products of conception. I spoke with FURNACE TAPPER, Dr. Engel and he has recommended that I transfer the patient to [facility] for a D&C. The patient is in agreement with this plan. We will send her by ambulance. [] Dragon Disclaimer: Dragon Disclaimer: This electronic medical record was generated, in whole or in part, using a voice recognition dictation system. Departure Departure: Impression: Primary Impression: Spontaneous Additional Impressions: Retained products of conception after miscarriage Anemia Qualified Codes: D62 - Acute posthemorrhagic anemia Disposition: XF SHT-TRM HOSP Condition: STABLE Referrals: PCP,NO (PCP) Justification of Admission: Justification of Admission: Justification of Admission Dx: N/A BURTON DAVILA DO Mar 10, 2020 09:53
[2020-03-10] MEDS ORDERED: KETOROLAC 30 MG/ML VIAL. IVP ONE (10:00)
[2020-03-10] MEDS ORDERED: ONDANSETRON PF 4 MG/2 ML VIAL. IVP ONE (10:00)
[2020-03-10] MEDS ORDERED: IV NORMAL SALINE 1,000ML 1,000 ML IV ONE (10:00)
[2020-03-10 10:22] LABS: BASO % 1 % (0-3); EOS % 1 % (0-3); HEMATOCRIT 24.3 % (36.0-47.0); HEMOGLOBIN 8.3 g/dL (12.0-15.5); LYMPH # 1.7 x10^3/uL (1.0-4.8); LYMPH % 32 % (24-48); MEAN CORPUSCULAR HEMOGLOBIN 31 pg (25-35); MEAN CORPUSCULAR HGB CONC 34 g/dL (31-37); MEAN CORPUSCULAR VOLUME 89 fL (79-100); MONO # 0.3 x10^3/uL (0.0-1.1); MONO % 7 % (0-9); NEUT # 3.2 x10^3uL (1.8-7.7); NEUT % 60 % (31-73); PLATELET COUNT 192 x10^3/uL (140-400); RED BLOOD COUNT 2.73 x10^6/uL (3.50-5.40); RED CELL DISTRIBUTION WIDTH 13.4 % (11.5-14.5); WHITE BLOOD COUNT 5.2 x10^3/uL (4.0-11.0)
[2020-03-10 10:27] LABS: CALCIUM 8.7 mg/dL (8.5-10.1); CREATININE 0.6 mg/dL (0.6-1.0); GFR 117.4; POTASSIUM 3.7 mmol/L (3.5-5.1)
[2020-03-10 10:33] LABS: ALBUMIN 3.3 g/dL (3.4-5.0); ALBUMIN/GLOBULIN RATIO 0.9 (1.0-1.7); TOTAL BILIRUBIN 0.1 mg/dL (0.2-1.0); TOTAL PROTEIN 6.8 g/dL (6.4-8.2)
--- NOTE | 2020-03-10 11:47 | RAD ---
EXAMINATION: Pelvic ultrasound 03/10/2020 10:56 AM INDICATION: Spontaneous , continued bleeding. TECHNIQUE: Luna scale, color and spectral Doppler ultrasound images of the pelvis were obtained via transabdominal and transvaginal approach. COMPARISON: 03/07/2020 and 03/06/2020. FINDINGS: The uterus is anteverted and measures 9.2 x 6.3 x 4.2 cm. There is a small amount of fluid in the lower uterine segment, less rounded and saclike in appearance compared to the prior exam. There is heterogeneous material in the endometrial canal at the fundus. The right ovary is not visualized. The left ovary measures 2.7 x 2.3 x 2.2 cm and have normal blood flow. IMPRESSION: Findings suspicious for failed with small amount of fluid in the endometrial canal at the lower uterine segment that is less rounded and saclike in appearance compared to prior exam and could be either an increasingly abnormal gestational sac or small amount of fluid/blood. Heterogeneous material within the endometrial canal at the fundus could be retained products of conception or blood/clot. Consider continued follow-up ultrasound and beta hCG and/or [facility] [employer] consultation. Electronically signed by: Vanessa Pinzon MD (03/10/2020 11:44 AM) [id number]
[2020-03-10 14:13] VITALS: BP 145/81
== END 2020-03-10 14:30 ==
LOC: ER 09:06
DX: O03.4 Incomplete spontaneous abortion without complication (principal); D62 Acute posthemorrhagic anemia; F17.210 Nicotine dependence, cigarettes, uncomplicated
CPT/HCPCS: 36415; 76857; 80053; 84702; 85025; 87299; 96361; 96374; 96375; 99285; J1885; J2405; 99284-25; J7030

== ENCOUNTER 2020-07-04 15:47 | Emergency (ER) | payer MEDICAID, OTHER ==
[~2020-07-04] VITALS: Ht 167.6 cm; Wt 70.8 kg
[2020-07-04 16:07] VITALS: BP 116/80
[2020-07-04] MEDS ORDERED: IV NORMAL SALINE 1,000ML 1,000 ML IV ONE (16:30)
--- NOTE | 2020-07-04 16:44 | PHYS DOC ---
Past History Past Medical History: No Pertinent History Additional Past Medical Histor: chronic back/jaw pain seasional allergies, miscarriage Past Surgical History: No Surgical History Additional Past Surgical Histo: eye surgery Smoking: Cigarettes Alcohol Use: Rarely Drug Use: None General Adult EDM: Chief Complaint: ABDOMINAL PAIN HPI: HPI: 29-year-old female presents with lower abdominal pain. The patient tells me that she has had this pain for a few days and it seems to be getting a bit worse. It is a deep cramping pain. 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 She is concerned about possible hernia. She denies urinary frequency, but has had some dysuria. She is also had some mild discomfort with defecation. The patient's pain did not start after any particular event. She has no history of hernias. She denies fever or chills. Review of Systems: Review of Systems: Constitutional: Denies fever or chills Eyes: Denies change in visual acuity HENT: Denies nasal congestion or sore throat Respiratory: Denies cough or shortness of breath Cardiovascular: Denies chest pain or edema GI: Lower abdominal pain. denies nausea, vomiting, bloody stools or diarrhea : Dysuria Musculoskeletal: Denies back pain or joint pain Integument: Denies rash Neurologic: Denies headache, focal weakness or sensory changes Endocrine: Denies polyuria or polydipsia Lymphatic: Denies swollen glands Psychiatric: Denies depression or anxiety Heart Score: Risk Factors: Risk Factors: DM, Current or recent (<one month) smoker, HTN, HLP, family hist ory of CAD, obesity. Risk Scores: Score 0 - 3: 2.5% MACE over next 6 weeks - Discharge Home Score 4 - 6: 20.3% MACE over next 6 weeks - Admit for Clinical Observation Score 7 - 10: 72.7% MACE over next 6 weeks - Early Invasive Strategies Current Medications: Current Meds: Current Medications Medications (Trade) Dose Ordered Sig/Harley Start Time Stop Time Status Last Admin Dose Admin Sodium Chloride 1,000 ml @ 1,000 mls/hr 1X ONCE 07/04/20 16:30 07/04/20 17:29 Allergies: Allergies: Allergies Coded Allergies Type Severity Reaction Last Updated Verified No Known Drug Allergies 03/06/20 No Physical Exam: PE: Constitutional: Well developed, well nourished, no acute distress, non-toxic appearance. [] HENT: Normocephalic, atraumatic, bilateral external ears normal, oropharynx moist, no oral exudates, nose normal. [] Eyes: PERRLA, EOMI, conjunctiva normal, no discharge. [] Neck: Normal range of motion, no tenderness, supple, no stridor. [] Cardiovascular:Heart rate regular rhythm, no murmur [] Lungs & Thorax: Bilateral breath sounds clear to auscultation [] Abdomen: Bowel sounds normal, soft, suprapubic tenderness, no masses, no pulsatile masses. [] Skin: Warm, dry, no erythema, no rash. [] Back: No tenderness, no CVA tenderness. [] Extremities: No tenderness, no cyanosis, no clubbing, ROM intact, no edema. [] Neurologic: Alert and oriented X 3, normal motor function, normal sensory function, no focal deficits noted. [] Psychologic: Affect normal, judgement normal, mood normal. [] Current Patient Data: Labs: Laboratory Tests Test 07/04/20 16:35 POC Urine HCG, Qualitative hcg negative (Negative) Vital Signs: Vital Signs Date Time Temp Pulse Resp B/P (MAP) Pulse Ox O2 Delivery O2 Flow Rate FiO2 07/04/20 16:07 98.1 84 14 116/80 (92) 100 Room Air EKG: EKG: [] Radiology/Procedures: Radiology/Procedures: [] Impressions: EXAM: CT Abdomen and Pelvis with IV contrast INDICATION: Reason: lower abdominal pain, concern for hernia / Spl. Instructions: / History: TECHNIQUE: Multi-detector row CT images were acquired from the lung bases through the abdomen and pelvis with the use of IV contrast. Sagittal and coronal images were acquired from the transaxial data. All CT scans performed at this facility utilize dose optimization techniques as appropriate to the exam, including the following: Automated exposure control and adjustment of the mA and/or KV according to patient size (this includes techniques or standardized protocols for targeted exams where dose is indication/reason for exam). IV CONTRAST: Administered ORAL CONTRAST: Not administered COMPARISON: Noncontrast abdomen pelvis CT 12/04/2014 FINDINGS: LOWER CHEST: Unremarkable LIVER: Unremarkable BILIARY SYSTEM: Gallbladder is unremarkable. Bile ducts are not dilated. PANCREAS: Unremarkable SPLEEN: Unremarkable ADRENALS: Unremarkable KIDNEYS & URETERS: Unremarkable BLADDER: Unremarkable REPRODUCTIVE ORGANS: Normal appearing uterus. There appears to be a 1.5 cm mixed fatty and soft tissue mass at the left adnexa (image 73 of series 2) that could represent a dermoid cyst. Right ovary is not well seen. Trace amount of pelvic fluid in the right adnexa is noted. GASTROINTESTINAL: The stomach, small bowel, and colon are unremarkable. The appendix is normal. MESENTERY/PERITONEUM/RETROPERITONEUM: Unremarkable VASCULAR: Unremarkable LYMPH NODES: No adenopathy OSSEOUS & SOFT TISSUES: Unremarkable IMPRESSION: Trace amount of fluid in the right adnexa, possibly reflection of a ruptured ovarian cyst. There is a left-sided mixed fatty and soft tissue ovoid 1.5 cm mass that could represent a dermoid cyst. This could be evaluated in greater detail by pelvic ultrasound. Otherwise no acute findings on contrast enhanced CT of the abdomen and pelvis. No evidence of an abdominal wall hernia. Electronically signed by: Beny Wells MD (07/04/2020 5:23 PM) [id number] DICTATED AND SIGNED BY: BENY WELLS MD DATE: 07/04/20 1723 CC: BURTON DAVILA DO; PCP,NO ~ Course & Med Decision Making: Course & Med Decision Making Pertinent Labs and Imaging studies reviewed. (See chart for details) The patient's labs are unremarkable. Her CT scan shows a possible ruptured ovarian cyst as well as a dermoid cyst. I believe the patient can safely f ollow-up with this outpatient with OB. She is stable for discharge at this time. [] Charoon Disclaimer: Griselda Disclaimer: This electronic medical record was generated, in whole or in part, using a voice recognition dictation system. Departure Departure: Impression: Primary Impression: Ovarian cyst Qualified Codes: N83.201 - Unspecified ovarian cyst, right side Disposition: 01 DC HOME SELF CARE/HOMELESS Condition: STABLE Referrals: PCP,NO (PCP) Patient Instructions: Ovarian Cyst, [id number] BURTON DAVILA DO Jul 04, 2020 16:44
[2020-07-04 16:53] LABS: BACTERIA,URINE 0 /HPF (0-FEW); BILIRUBIN,URINE NEG (NEG); CLARITY,URINE CLEAR; COLOR,URINE YELLOW; GLUCOSE,URINE NEG (NEG); NITRITE,URINE NEG (NEG); RBC,URINE 0 /HPF (0-2); SQUAMOUS EPITHELIAL CELL,UR MANY /LPF; UROBILINOGEN,URINE 0.2 mg/dL (0.2 mg/dL); WBC,URINE 0 /HPF (0-4)
[2020-07-04] MEDS ORDERED: IOHEXOL 300 MG/ML 75 ML VIAL. IV ONE (17:00)
[2020-07-04 17:01] LABS: BASO % 0 % (0-3); EOS % 0 % (0-3); LYMPH # 1.9 x10^3/uL (1.0-4.8); LYMPH % 31 % (24-48); MEAN CORPUSCULAR HEMOGLOBIN 23 pg (25-35); MEAN CORPUSCULAR HGB CONC 32 g/dL (31-37); MEAN CORPUSCULAR VOLUME 73 fL (79-100); MONO # 0.5 x10^3/uL (0.0-1.1); MONO % 8 % (0-9); NEUT # 3.8 x10^3uL (1.8-7.7); NEUT % 60 % (31-73); PLATELET COUNT 251 x10^3/uL (140-400); RED BLOOD COUNT 4.77 x10^6/uL (3.50-5.40); RED CELL DISTRIBUTION WIDTH 20.9 % (11.5-14.5); WHITE BLOOD COUNT 6.3 x10^3/uL (4.0-11.0)
[2020-07-04 17:13] LABS: CREATININE 0.7 mg/dL (0.6-1.0); GFR 98.3; POTASSIUM 3.9 mmol/L (3.5-5.1)
[2020-07-04 17:20] LABS: TOTAL BILIRUBIN 0.2 mg/dL (0.2-1.0); TOTAL PROTEIN 8.1 g/dL (6.4-8.2)
--- NOTE | 2020-07-04 17:26 | RAD ---
EXAM: CT Abdomen and Pelvis with IV contrast INDICATION: Reason: lower abdominal pain, concern for hernia / Spl. Instructions: / History: TECHNIQUE: Multi-detector row CT images were acquired from the lung bases through the abdomen and pelvis with the use of IV contrast. Sagittal and coronal images were acquired from the transaxial data. All CT scans performed at this facility utilize dose optimization techniques as appropriate to the exam, including the following: Automated exposure control and adjustment of the mA and/or KV according to patient size (this includes techniques or standardized protocols for targeted exams where dose is indication/reason for exam). IV CONTRAST: Administered ORAL CONTRAST: Not administered COMPARISON: Noncontrast abdomen pelvis CT 12/04/2014 FINDINGS: LOWER CHEST: Unremarkable LIVER: Unremarkable BILIARY SYSTEM: Gallbladder is unremarkable. Bile ducts are not dilated. PANCREAS: Unremarkable SPLEEN: Unremarkable ADRENALS: Unremarkable KIDNEYS & URETERS: Unremarkable BLADDER: Unremarkable REPRODUCTIVE ORGANS: Normal appearing uterus. There appears to be a 1.5 cm mixed fatty and soft tissue mass at the left adnexa (image 73 of series 2) that could represent a dermoid cyst. Right ovary is not well seen. Trace amount of pelvic fluid in the right adnexa is noted. GASTROINTESTINAL: The stomach, small bowel, and colon are unremarkable. The appendix is normal. MESENTERY/PERITONEUM/RETROPERITONEUM: Unremarkable VASCULAR: Unremarkable LYMPH NODES: No adenopathy OSSEOUS & SOFT TISSUES: Unremarkable IMPRESSION: Trace amount of fluid in the right adnexa, possibly reflection of a ruptured ovarian cyst. There is a left-sided mixed fatty and soft tissue ovoid 1.5 cm mass that could represent a dermoid cyst. This could be evaluated in greater detail by pelvic ultrasound. Otherwise no acute findings on contrast enhanced CT of the abdomen and pelvis. No evidence of an abdominal wall hernia. Electronically signed by: Kaylie Wells MD (07/04/2020 5:23 PM) [id number]
[2020-07-04 18:22] LABS: ANISOCYTOSIS SLIGHT; HYPOCHROMIA PRESENT; PLT ESTIMATE ADEQUATE (ADEQUATE)
== END 2020-07-04 17:55 | disposition home or self-care (01) ==
LOC: ER 15:47
DX: N83.201 Unspecified ovarian cyst, right side (principal); G89.29 Other chronic pain; F17.210 Nicotine dependence, cigarettes, uncomplicated
CPT/HCPCS: 36415; 74177; 80053; 81001; 81025; 85025; 96360; 99285; J7030; Q9967

== ENCOUNTER → 2020-09-15 | Outpatient (CLI) | payer OTHER ==
[2020-09-15 09:37] LABS: BASO % 1 % (0-3); EOS % 1 % (0-3); HEMOGLOBIN 11.9 g/dL (12.0-15.5); LYMPH # 2.1 x10^3/uL (1.0-4.8); LYMPH % 34 % (24-48); MEAN CORPUSCULAR HEMOGLOBIN 26 pg (25-35); MEAN CORPUSCULAR HGB CONC 32 g/dL (31-37); MEAN CORPUSCULAR VOLUME 81 fL (79-100); MONO # 0.5 x10^3/uL (0.0-1.1); MONO % 8 % (0-9); NEUT # 3.5 x10^3uL (1.8-7.7); NEUT % 57 % (31-73); PLATELET COUNT 264 x10^3/uL (140-400); RED BLOOD COUNT 4.58 x10^6/uL (3.50-5.40); RED CELL DISTRIBUTION WIDTH 18.6 % (11.5-14.5); WHITE BLOOD COUNT 6.1 x10^3/uL (4.0-11.0)
[2020-09-15 15:18] LABS: FREE T4 1.2 ng/dL (0.76-1.46); THYROID STIM HORMONE (TSH) 0.288 uIU/mL (0.358-3.740)
== END ==
LOC: LAB 08:44
PROVIDERS: ATTEND Physician Assistant
DX: R53.83 Other fatigue (principal); D64.9 Anemia, unspecified; R79.89 Other specified abnormal findings of blood chemistry
CPT/HCPCS: 36415; 82607; 82728; 82746; 83540; 83550; 84439; 84443; 85025

== ENCOUNTER 2020-09-19 15:03 | Emergency (ER) | payer OTHER ==
[~2020-09-19] VITALS: Ht 152.4 cm; Wt 76.8 kg
[2020-09-19 15:10] VITALS: BP 117/71
--- NOTE | 2020-09-19 16:07 | PHYS DOC ---
Past History Past Medical History: No Pertinent History Additional Past Medical Histor: chronic back/jaw pain seasional allergies, miscarriage Past Surgical History: No Surgical History Additional Past Surgical Histo: eye surgery Smoking: Cigarettes Alcohol Use: Rarely Drug Use: None Adult General Chief Complaint Chief Complaint: VAGINAL PROBLEM HPI HPI Patient is a 29-year-old female who presents to the emergency department stating that she took a test this morning and it was positive. Patient states that she noticed that when she wiped with the toilet paper after urinating she noticed some light pink tinge on the toilet paper. Patient states that her last menstrual period was August 10 patient states she recently had a miscarriage in May. Patient reports that she is not sure if she was because after quitting her Depo injections 2 years ago she has had irregular periods since. Patient denies any STI concerns, or vaginal discharge. Patient reports that 3 days ago when she was at her doctor's office for a work-up of her overactive thyroid that they run a test and it was negative. Patient reports that she is supposed to have a thyroid ultrasound done sometime soon patient denies any allergies to medications. Patient states that her only medication at home is Tylenol. Patient denies any chest pains, chest palpitations, shortness of breath, fever, chills, rashes to her skin, numbness or tingling to her extremities. Patient denies any visual disturbances. Patient denies any other health concerns or illnesses. Patient reports that she has been trying to get , and she fears that she is having another miscarriage. Review of Systems Review of Systems 14 body systems of review of systems have been reviewed. See HPI for pertinent positives and negative responses, otherwise all other systems are negative, nonpertinent or noncontributory. Allergies Allergies Allergies Coded Allergies Type Severity Reaction Last Updated Verified No Known Drug Allergies 03/06/20 No Physical Exam Physical Exam Constitutional: Well developed, well nourished, no acute distress, non-toxic appearance. HENT: Normocephalic, atraumatic, bilateral external ears normal, oropharynx moist, no oral exudates, nose normal. Eyes: PERRLA, EOMI, conjunctiva normal, no discharge. Neck: Normal range of motion, no tenderness, supple, no stridor. Cardiovascular:Heart rate regular rhythm, no murmur Lungs & Thorax: Bilateral breath sounds clear to auscultation Abdomen: Bowel sounds normal, soft, no tenderness, no masses, no pulsatile masses. Tenderness to right lower pelvic area with palpation, no rebound tenderness noted no McBurney's point tenderness, negative psoas sign Skin: Warm, dry, no erythema, no rash. Back: No tenderness, no CVA tenderness. Extremities: No tenderness, no cyanosis, no clubbing, ROM intact, no edema. Neurologic: Alert and oriented X 3, normal motor function, normal sensory function, no focal deficits noted. Psychologic: Affect normal, judgement normal, mood normal. : Pelvic exam was deferred, patient refused. Current Patient Data Lab Results Laboratory Tests Test 09/19/20 15:50 09/19/20 16:05 Urine Collection Type Unknown Urine Color [place] Urine Clarity Hazy Urine pH 6.0 Urine Specific [place] <=1.005 Urine Protein Neg Urine Glucose (UA) Neg mg/dL Urine Ketones (Stick) Neg mg/dL Urine Blood Large Urine Nitrite Neg Urine Bilirubin Neg Urine Urobilinogen Dipstick 0.2 mg/dL Urine Leukocyte Esterase Trace Urine RBC 3-5 /HPF Urine WBC Occ /HPF Urine Squamous Epithelial Cells Occ /LPF Urine Bacteria 0 /HPF Maternal Serum HCG Beta Subunit 6539 mIU/mL EKG EKG [] Radiology/Procedures Radiology/Procedures STATUS: REG ER ORD. PHYSICIAN: YEIMY ANDRE APRN REASON: RT LOW PELVIC PAIN, LESS THAN 14WKS PREG PROCEDURE: OB <14 WKS W/TV Exam: Ultrasound OB less than 14 weeks Indication: Right lower pelvic pain Technique: Real-time grayscale and color Doppler images of the pelvis were obtained by the department warehouse distribution specialist. Comparisons: None FINDINGS: Uterus measures 8.3 x 4.7 x 3.7 cm. Within the endometrium there is a gestational sac with yolk sac and pole. pole measures 3 mm in length. No heart tones identified. Right ovary measures 3.0 x 1.3 x 1.4 cm. Left ovary measures 2.1 x 1.5 x 1.6 cm. No free fluid in the pelvis. IMPRESSION: Intrauterine gestational sac with pole. No heart tones are identif ied. Differential considerations include early IUP versus failed IUP. Recommend correlation with serial beta hCG measurements and short-term follow-up ultrasound. Electronically signed by: Alfonso Guerrero MD (09/19/2020 5:57 PM) [id number] DICTATED AND SIGNED BY: ALFONSO GUERRERO MD DATE: 09/19/20 8064 CC: YEIMY ANDRE APRN; TONIE BAH ~MTH0 0 Heart Score Risk Factors: Risk Factors: DM, Current or recent (<one month) smoker, HTN, HLP, family history of CAD, obesity. Risk Scores: Risk Factors: DM, Current or recent (<one month) smoker, HTN, HLP, family history of CAD, obesity. Course & Med Decision Making Course & Med Decision Making Pertinent Labs and Imaging studies reviewed. (See chart for details) 29-year-old female presents emergency department complaining of and vaginal bleeding. Patient's urine was not infected, however showed large blood with no bacteria. A beta hCG was drawn and resulted 6539. Patient's ultrasound was performed related to right lower pelvic pain, read by house radiologist interpretation as IUP with a pole however concerning of not appreciating heartbeat or heart tones, negative for ovarian cyst, negative for ectopic . Radiologist's recommendation of serial hCG studies with short-term follow-up ultrasound. Discussed with patient radiologist findings, discussed strict return to emergency department concerns, discussed need to follow-up Tuesday with her OB specialist to have her hCG redrawn and follow-up ultrasound. Patient gave verbal understanding of discharge home instructions and follow-up instructions, patient had no further questions or concerns [place], patient discharged home without incident. Dragon Disclaimer Dragon Disclaimer This electronic medical record was generated, in whole or in part, using a voice recognition dictation system. Departure Departure: Impression: Primary Impression: Threatened in first trimester Disposition: 01 DC HOME SELF CARE/HOMELESS Condition: STABLE Referrals: TONIE BAH (PCP) Patient Instructions: Threatened Miscarriage Additional Instructions: You are seen today in the emergency department for vaginal bleeding during , we have drawn a blood value called beta hCG its value is 6539, you need to have this redrawn on Tuesday. We also did an ultrasound evaluating the , this was evaluated by our radiologist, our radiologist has recommended that you have a repeat ultrasound on Tuesday for a reevaluation of the . Please return to the emergency department for worsening symptoms or other concerns. I am giving you a note for bed rest until released by your OB doctor soon, you should see them on Tuesday. EMERGENCY DEPARTMENT GENERAL DISCHARGE INSTRUCTIONS Thank you for coming to [facility] (ED) today and trusting us with you care. We trust that you had a positivie experience in our Emergency Department. If you wish to speak to the department management, you may call the director at [phone]. YOUR FOLLOW UP INSTRUCTIONS ARE FOLLOWS: 1. Do you have a private Doctor? If you do not have a private doctor, please ask for a resource list of physicians or clinics that may be able to assist you with follo w up care. 2. The Emergency Physician has interpreted your x-rays. The X-Ray specialist will also review them. If there is a change in the findings, you will be notified in 48 hours when at all possible. 3. A lab test or culture has been done, your results will be reviewed and you will be notified if you need a change in treatment. ADDITIONAL INSTRUCTIONS AND INFORMATION: 1. Your care today has been supervised by a physician who is specially trained in emergency care. Many problems require more than one evaluation for a complete diagnosis and treatment. We recommend that you schedule your follow up appointment as rec ommended to ensure complete treatment of you illness or injury. If you are unable to obtain follow up care and continue to have a problem, or if your condition worsens, we recommend that you return to the ED. 2. We are not able to safely determine your condition over the phone nor are we able to give sound medical advice over the phone. For these safety reasons, if you call for medical advice we will ask you to come to the ED for further evaluation. 3. If you have any questions regarding these discharge instructions please call the ED at [phone]. SAFETY INFORMATION: In the interest of safety, wellness, and injury prevention; we encourage you to wear your sealbelt, if you smoke; quite smoking, and we encourage family to use a protective helmet for bicycling and other sporting events that present an increased risk for head injury. IF YOUR SYMPTOMS WORSEN OR NEW SYMPTOMS DEVELOP, OR YOU HAVE CONCERNS ABOUT YOUR CONDITION; OR IF YOUR CONDITION WORSENS WHILE YOU ARE WAITING FOR YOUR FOLLOW UP APPOINTMENT; EITHER CONTACT YOUR PRIMARY CARE DOCTOR, THE PHYSICIAN WHOSE NAME AND NUMBER YOU WERE GIVEN, OR RETURN TO THE ED IMMEDIATELY. Scripts Prenat Vit Comb.10/Iron/Fa/Dha (VITAFOL-OB+DHA COMBO PACK) 1 Each Combo..pkg 1 EACH PO DAILY for for 30 Days, #30 EACH 0 Refills Prov: YEIMY ANDRE APRN 09/19/20 YEIMY ANDRE APRN Sep 19, 2020 16:07
[2020-09-19 16:30] LABS: BILIRUBIN,URINE NEG (NEG); CLARITY,URINE HAZY; COLOR,URINE PINK; GLUCOSE,URINE NEG (NEG); NITRITE,URINE NEG (NEG); UROBILINOGEN,URINE 0.2 mg/dL (0.2 mg/dL); WBC,URINE OCC /HPF (0-4)
[2020-09-19 16:31] LABS: BACTERIA,URINE 0 /HPF (0-FEW); SQUAMOUS EPITHELIAL CELL,UR OCC /LPF
--- NOTE | 2020-09-19 18:00 | RAD ---
Exam: Ultrasound OB less than 14 weeks Indication: Right lower pelvic pain Technique: Real-time grayscale and color Doppler images of the pelvis were obtained by the department naval science teacher. Comparisons: None FINDINGS: Uterus measures 8.3 x 4.7 x 3.7 cm. Within the endometrium there is a gestational sac with yolk sac a nd pole. pole measures 3 mm in length. No heart tones identified. Right ovary measures 3.0 x 1.3 x 1.4 cm. Left ovary measures 2.1 x 1.5 x 1.6 cm. No free fluid in the pelvis. IMPRESSION: Intrauterine gestational sac with pole. No heart tones are identified. Differential consi derations include early IUP versus failed IUP. Recommend correlation with serial beta hCG measurement s and short-term follow-up ultrasound. Electronically signed by: Estela Hopkins MD (09/19/2020 5:57 PM) [id number]
[2020-09-19] MEDS ORDERED: PREN1COM3 PO (18:46)
== END 2020-09-19 18:57 | disposition home or self-care (01) ==
LOC: ER 15:03
DX: O20.0 Threatened abortion (principal); O99.331 Smoking (tobacco) complicating pregnancy, first trimester; Z3A.00 Weeks of gestation of pregnancy not specified
CPT/HCPCS: 36415; 76801; 76817; 81001; 84702; 87086; 99284

== ENCOUNTER 2020-09-20 17:28 | Emergency (ER) | payer OTHER ==
[~2020-09-20] VITALS: Ht 152.4 cm; Wt 76.8 kg
[~2020-09-20 17:28] MED LIST changes: +PREN1COM3 PO
[2020-09-20 17:47] VITALS: BP 123/80
[2020-09-20 20:46] LABS: BASO % 1 % (0-3); EOS % 0 % (0-3); HEMOGLOBIN 11.7 g/dL (12.0-15.5); LYMPH # 2.4 x10^3/uL (1.0-4.8); LYMPH % 27 % (24-48); MEAN CORPUSCULAR HEMOGLOBIN 27 pg (25-35); MEAN CORPUSCULAR HGB CONC 33 g/dL (31-37); MEAN CORPUSCULAR VOLUME 81 fL (79-100); MONO # 0.7 x10^3/uL (0.0-1.1); MONO % 8 % (0-9); NEUT # 5.7 x10^3uL (1.8-7.7); NEUT % 64 % (31-73); PLATELET COUNT 277 x10^3/uL (140-400); RED BLOOD COUNT 4.43 x10^6/uL (3.50-5.40); RED CELL DISTRIBUTION WIDTH 18.3 % (11.5-14.5); WHITE BLOOD COUNT 8.9 x10^3/uL (4.0-11.0)
--- NOTE | 2020-09-20 21:30 | PHYS DOC ---
Past History Past Medical History: Anxiety, Hyperthyroid Additional Past Medical Histor: chronic back/jaw pain seasional allergies, miscarriage Past Surgical History: Other Additional Past Surgical Histo: D&C 06/10/20 Smoking: Cigarettes Alcohol Use: Rarely Drug Use: None Adult General Chief Complaint Chief Complaint: VAGINAL BLEEDING [facility] HPI Patient is a 29-year-old female presents emergency department complaining of increased vaginal bleeding with clots. Patient states that she believes she is having a miscarriage. Patient was seen here at [place] emergency department yesterday for light pink tinge spotting after urination. Patient was worked up to establish an initial beta-hCG level and transvaginal less than 14 weeks ultrasound. It was recommended patient have a reevaluation with her OB in 2 or 3 days for a redraw and comparison of beta hCG level and serial ultrasound examination patient states that she returned today because she noticed she was passing clots and having vaginal bleeding that is consistent with her normal menstrual cycle bleeding, however states that she is passing some clots with this, patient states she has mild low pelvic cramping intermittent that is consistent with her menstrual cycle cramping. Patient states she did not take any medications for her discomfort. Patient states she is returned because she feels she is having a miscarriage at this time. Patient denies any other physical illnesses or physical complaints Review of Systems Review of Systems 14 body systems of review of systems have been reviewed. See HPI for pertinent positives and negative responses, otherwise all other systems are negative, nonpertinent or noncontributory. Allergies Allergies Allergies Coded Allergies Type Severity Reaction Last Updated Verified No Known Drug Allergies 03/06/20 No Physical Exam Physical Exam Constitutional: Well developed, well nourished, no acute distress, non-toxic appearance. [] HENT: Normocephalic, atraumatic, bilateral external ears normal, oropharynx moist, no oral exudates, nose normal. [] Eyes: PERRLA, EOMI, conjunctiva normal, no discharge. [] Neck: Normal range of motion, no tenderness, supple, no stridor. [] Cardiovascular:Heart rate regular rhythm, no murmur [] Lungs & Thorax: Bilateral breath sounds clear to auscultation [] Abdomen: Bowel sounds normal, soft, no tenderness, no masses, no pulsatile masses. [] Skin: Warm, dry, no erythema, no rash. [] Back: No tenderness, no CVA tenderness. [] Extremities: No tenderness, no cyanosis, no clubbing, ROM intact, no edema. [] Neurologic: Alert and oriented X 3, normal motor function, normal sensory function, no focal deficits noted. [] Psychologic: Affect normal, judgement normal, mood normal. [] Current Patient Data Vital Signs Vital Signs Date Time Temp Pulse Resp B/P (MAP) Pulse Ox O2 Delivery O2 Flow Rate FiO2 09/20/20 17:47 76 18 123/80 (94) 99 Lab Results Laboratory Tests Test 09/20/20 17:45 09/20/20 20:35 Maternal Serum HCG Beta Subunit 4531 mIU/mL (0-6) H White Blood Count 8.9 x10^3/uL (4.0-11.0) Red Blood Count 4.43 x10^6/uL (3.50-5.40) Hemoglobin 11.7 g/dL (12.0-15.5) L Hematocrit 36.0 % (36.0-47.0) Mean Corpuscular Volume 81 fL (79-100) Mean Corpuscular Hemoglobin 27 pg (25-35) Mean Corpuscular Hemoglobin Concent 33 g/dL (31-37) Red Cell Distribution Width 18.3 % (11.5-14.5) H Platelet Count 277 x10^3/uL (140-400) Neutrophils (%) (Auto) 64 % (31-73) Lymphocytes (%) (Auto) 27 % (24-48) Monocytes (%) (Auto) 8 % (0-9) Eosinophils (%) (Auto) 0 % (0-3) Basophils (%) (Auto) 1 % (0-3) Neutrophils # (Auto) 5.7 x10^3uL (1.8-7.7) Lymphocytes # (Auto) 2.4 x10^3/uL (1.0-4.8) Monocytes # (Auto) 0.7 x10^3/uL (0.0-1.1) Eosinophils # (Auto) 0.0 x10^3/uL (0.0-0.7) Basophils # (Auto) 0.0 x10^3/uL (0.0-0.2) EKG EKG [] Radiology/Procedures Radiology/Procedures [] Heart Score Risk Factors: Risk Factors: DM, Current or recent (<one month) smoker, HTN, HLP, family h istory of CAD, obesity. Risk Scores: Risk Factors: DM, Current or recent (<one month) smoker, HTN, HLP, family history of CAD, obesity. Course & Med Decision Making Course & Med Decision Making Pertinent Labs and Imaging studies reviewed. (See chart for details) 2-year-old female evaluated emergency department today with complaints of passing vaginal clots with vaginal bleeding. Patient was evaluated yesterday for threatened miscarriage and it was recommended to her to follow-up with an OB specialist in 3 days to have a serial beta hCG and serial ultrasound done to examine intrauterine . Patient states she fears she has lost a lot of blood even though when questioned specifically she has not changed her menstrual cycle pad today. Question patient about her statement of passing clots and heavy vaginal bleeding, patient then responded that she was not sure if she was passing clots or not and she was not really sure if she was bleeding or not. Labs were drawn to study CBC and beta-hCG, CBC was nonconcerning for acute blood loss or concerning low hemoglobin or anemia, beta hCG had decreased from yesterday value of 6539 down to today's value of 4531. Discussed with patient this is most likely a miscarriage. Recommended to patient that she follow-up with an OB specialist. Patient does reveal that she is trying to get . Recommend with patient that she follow-up with an OB specialist to let them know that she is trying to get and maintain a successful as they will be able to assist her with this more efficiently than emergency department visits. Patient asked if she needed a D&C, responded to patient that she is not currently passing clots or having any vaginal bleeding that this may come over the next several days and while it may be possible she will require a D&C, it is not indicated at this time and to follow-up with OB specialist to determine if a D&C is needed. Patient gave verbal understanding of need to follow-up with OB specialist, return to ER precautions and concerns, patient discharged home without incident. Dragon Disclaimer Dragon Disclaimer This electronic medical record was generated, in whole or in part, using a voice recognition dictation system. Departure Departure: Impression: Primary Impression: Miscarriage Disposition: 01 DC HOME SELF CARE/HOMELESS Condition: STABLE Referrals: TONIE BAH (PCP) Patient Instructions: Miscarriage Additional Instructions: Your hCG level has decreased indicating that you are having a miscarriage, pl ease return to the emergency department for worsening symptoms or other concerns, we have discussed in detail the reasons to follow-up with an OB specialist soon, please secure a appointment on this coming 09/22/2020 with an HOST/HOSTESS GROUND specialist. Please return to the emergency department if your bleeding worsens, you become dizzy, or you faint, or have passing out spells. Call your primary care doctor on Tuesday to schedule an appointment for further evaluation. Your hemoglobin today was 11.7. EMERGENCY DEPARTMENT GENERAL DISCHARGE INSTRUCTIONS Thank you for coming to [facility] ([facility]) today and trusting us with you care. We trust that you had a positivie experience in our Emergency Department. If you wish to speak to the department management, you may call the director at [phone]. YOUR FOLLOW UP INSTRUCTIONS ARE FOLLOWS: 1. Do you have a private Doctor? If you do not have a private doctor, please ask for a resource list of physicians or clinics that may be able to assist you with follow up care. 2. The Emergency Physician has interpreted your x-rays. The X-Ray specialist will also review them. If there is a change in the findings, you will be notified in 48 hours when at all possible. 3. A lab test or culture has been done, your results will be reviewed and you will be notified if you need a change in treatment. ADDITIONAL INSTRUCTIONS AND INFORMATION: 1. Your care today has been supervised by a physician who is specially trained in emergency care. Many problems require more than one evaluation for a complete diagnosis and treatment. We recommend that you schedule your follow up appointment as recommended to ensure complete treatment of you illness or injury. If you are unable to obtain follow up care and continue to have a problem, or if your condition worsens, we recommend that you return to the ED. 2. We are not able to safely determine your condition over the phone nor are we able to give sound medical advice over the phone. For these safety reasons, if you call for medical advice we will ask you to come to the ED for further evaluation. 3. If you have any questions regarding these discharge instructions please call the ED at [phone]. SAFETY INFORMATION: In the interest of safety, wellness, and injury prevention; we encourage you to wear your sealbelt, if you smoke; quite smoking, and we encourage family to use a protective helmet for bicycling and other sporting events that present an increased risk for head injury. IF YOUR SYMPTOMS WORSEN OR NEW SYMPTOMS DEVELOP, OR YOU HAVE CONCERNS ABOUT YOUR CONDITION; OR IF YOUR CONDITION WORSENS WHILE YOU ARE WAITING FOR YOUR FOLLOW UP APPOINTMENT; EITHER CONTACT YOUR PRIMARY CARE DOCTOR, THE PHYSICIAN WHOSE NAME AND NUMBER YOU WERE GIVEN, OR RETURN TO THE ED IMMEDIATELY. YEIMY ANDRE APRN Sep 20, 2020 21:30
== END 2020-09-20 21:38 | disposition home or self-care (01) ==
LOC: ER 17:28
DX: O03.9 Complete or unspecified spontaneous abortion without complication (principal); O99.281 Endocrine, nutritional and metabolic diseases complicating pregnancy, first trimester; O99.331 Smoking (tobacco) complicating pregnancy, first trimester; Z3A.00 Weeks of gestation of pregnancy not specified
CPT/HCPCS: 36415; 84702; 85025; 99283

== ENCOUNTER 2020-09-30 09:14 | Emergency (ER) | payer OTHER ==
[~2020-09-30] VITALS: Ht 152.4 cm; Wt 72.7 kg
[~2020-09-30 09:14] MED LIST changes: -CLIN300C8 PO; +CLIN300C9 PO
[2020-09-30] MEDS ORDERED: HYDROcodone/APAP 5/325MG 1 TAB TABLET PO ONE (10:30)
--- NOTE | 2020-09-30 10:33 | RAD ---
3 views right second finger 09/30/2020 10:27 AM Indication: Reason: possibel freacture / Spl. Instructions: / History: Comparison: None Findings: There is no acute fracture or dislocation. Articular surfaces are uninterupted and smooth. Soft tissues are unremarkable. Impression: No evidence of acute osseous abnormality. Electronically signed by: Hua Ryan MD (09/30/2020 10:30 AM) [id number]
[2020-09-30] MEDS ORDERED: DIPH,PERTUSS(ACELL),TET VAC/PF 0.5 ML SYRINGE. VAX IM ONE (11:00)
[2020-09-30] MEDS ORDERED: TRAM50TA PO (11:37)
--- NOTE | 2020-09-30 11:38 | PHYS DOC ---
Past History Past Medical History: Anxiety, Hyperthyroid Additional Past Medical Histor: chronic back/jaw pain seasional allergies, miscarriage Past Surgical History: Other Additional Past Surgical Histo: D&C 06/10/20 Smoking: Cigarettes Alcohol Use: Rarely Drug Use: None General Adult EDM: Chief Complaint: FINGER INJURY HPI: HPI: Patient is a 29-year-old female coming in with pain and swelling to her right index finger after was shut in a car door about 1 hour prior to arrival. Has some bleeding from a small puncture wound on the top of her finger. States she has a little bit of tingling but can feel sensation of the end of her finger. Difficulty bending finger due to pain and swelling. Says she otherwise has been well and denies any recent illness. She is right-handed. Last tetanus greater than 10 years ago. Review of Systems: Review of Systems: All other systems within normal limits except for as noted in the HPI Current Medications: Current Meds: Current Medications Medications (Trade) Dose Ordered Sig/Harley Start Time Stop Time Status Last Admin Dose Admin Acetaminophen/ Hydrocodone Bitart (Lortab 5/325) 1 tab 1X ONCE 09/30/20 10:30 09/30/20 10:31 DC 09/30/20 10:22 1 TAB Diphtheria/ Pertussis/Tetanus Vacc (ADACEL TDap SYRINGE) 0.5 ml ONCE ONCE 09/30/20 11:00 09/30/20 11:01 DC 09/30/20 11:00 0.5 ML Allergies: Allergies: Allergies Coded Allergies Type Severity Reaction Last Updated Verified No Known Drug Allergies 03/06/20 No Physical Exam: PE: Constitutional: Well developed, well nourished, no acute distress, non-toxic appearance. [] HENT: Normocephalic, atraumatic, bilateral external ears normal, nose normal. [] Eyes: PERRLA, conjunctiva normal, no discharge. [] Neck: No rigidity, supple, no stridor. [] Cardiovascular: Regular rate and rhythm, brisk cap refill [] Lungs & Thorax: Non labored symmetric respirations, no tachypnea or respiratory distress [] Abdomen: Soft, nondistended. Skin: Warm, dry, no erythema, no rash. [] Back: No tenderness, no CVA tenderness. [] Extremities: No deformities, range of motion grossly intact, no lower extremity edema [] right index finger swollen, no joint effusion. MIP and DIP isolated and tested through range of motion with and without resistance. Flexion of the IP presents but slightly limited by swelling of the finger. Tensor exam appears to be intact. Neurologic: Alert and oriented X 3, no focal deficits noted. [] Psychologic: Affect normal, judgement normal, mood normal. [] Current Patient Data: Vital Signs: Vital Signs Date Time Temp Pulse Resp B/P (MAP) Pulse Ox O2 Delivery O2 Flow Rate FiO2 09/30/20 10:22 16 98 Room Air 09/30/20 10:11 97.2 72 114/51 (72) EKG: EKG: [] Radiology/Procedures: Radiology/Procedures: 3 views right second finger 09/30/2020 10:27 AM Indication: Reason: possibel freacture / Spl. Instructions: / History: Comparison: None Findings: There is no acute fracture or dislocation. Articular surfaces are uninterupted and smooth. Soft tissues are unremarkable. Impression: No evidence of acute osseous abnormality. [] Heart Score: Risk Factors: Risk Factors: DM, Current or recent (<one month) smoker, HTN, HLP, family history of CAD, obesity. Risk Scores: Score 0 - 3: 2.5% MACE over next 6 weeks - Discharge Home Score 4 - 6: 20.3% MACE over next 6 weeks - Admit for Clinical Observation Score 7 - 10: 72.7% MACE over next 6 weeks - Early Invasive Strategies Course & Med Decision Making: Course & Med Decision Making No osseous abnormality, tendons appear to be intact. No significant bruising. No fingernail involvement. Tetanus updated in the emergency department. A splint was placed for comfort. [] Dragon Disclaimer: Dragon Disclaimer: This electronic medical record was generated, in whole or in part, using a voice recognition dictation system. Departure Departure: Impression: Primary Impression: Crushing injury of right index finger Disposition: 01 DC HOME SELF CARE/HOMELESS Condition: STABLE Referrals: TONIE BAH (PCP) Patient Instructions: Crush Injury, Fingers or Toes Additional Instructions: Wear splint for up to 2 days., After removed make sure we work on range of motion movements with the finger. Keep elevated to prevent throbbing. May take Tylenol and ibuprofen with prescribed pain medication as needed. Scripts Tramadol Hcl (TRAMADOL HCL) 50 Mg Tablet 50 MG PO PRN Q6HRS PRN for PAIN for 3 Days, #10 TAB Prov: OLIMPIA WHEELER MD 09/30/20 OLIMPIA WHEELER MD Sep 30, 2020 11:38
[2020-09-30 11:45] VITALS: BP 113/76
== END 2020-09-30 11:41 | disposition home or self-care (01) ==
LOC: ER 09:14
DX: S67.190A Crushing injury of right index finger, initial encounter (principal); F41.9 Anxiety disorder, unspecified; E05.90 Thyrotoxicosis, unspecified without thyrotoxic crisis or storm; F17.210 Nicotine dependence, cigarettes, uncomplicated; W23.0XXA Caught, crushed, jammed, or pinched between moving objects, initial encounter; Y93.89 Activity, other specified; Y92.89 Other specified places as the place of occurrence of the external cause; Y99.8 Other external cause status
CPT/HCPCS: 29130; 73140; 90471; 90715; 99283

== ENCOUNTER 2020-11-07 22:12 | Emergency (ER) | payer OTHER ==
[~2020-11-07] VITALS: Ht 152.4 cm; Wt 87.7 kg
[~2020-11-07 22:12] MED LIST changes: +TRAM50TA PO
--- NOTE | 2020-11-07 22:45 | PHYS DOC ---
Past History Past Medical History: Anxiety, Hyperthyroid Additional Past Medical Histor: chronic back/jaw pain seasional allergies, miscarriage Past Surgical History: Other Additional Past Surgical Histo: D&C 06/10/20 Smoking: Cigarettes Alcohol Use: Rarely Drug Use: None General Adult HPI: HPI: ".. I noticed some bright red blood.. after I had a stool... It also hurt when I went to the bath room...." Patient is a 30 year old female who presents with above hx and complaints of bright red rectal bleeding. Patient has had some constipation. Recent mi scarriage. 2 term 2. No history coagulopathy. No history of rectal sex. Has had intermittent history of constipation. Follows with [facility] for care. No history of colitis with her family members. Review of Systems: Review of Systems: Constitutional: Denies fever or chills Eyes: Denies change in visual acuity HENT: Denies nasal congestion or sore throat Respiratory: Denies cough or shortness of breath Cardiovascular: Denies chest pain or edema GI: Denies abdominal pain, nausea, vomiting, diarrhea. Complains of constipation and rectal bleeding : Denies dysuria Musculoskeletal: Denies back pain or joint pain Integument: Denies rash Neurologic: Denies headache, focal weakness or sensory changes Endocrine: Denies polyuria or polydipsia Lymphatic: Denies swollen glands Psychiatric: Denies depression or anxiety Family History: Family History: Noncontributory to presentation Current Medications: Current Meds: See nursing for home meds Allergies: Allergies: Allergies Coded Allergies Type Severity Reaction Last Updated Verified No Known Drug Allergies 03/06/20 No Physical Exam: PE: Constitutional: Well developed, well nourished, no acute distress, non-toxic appearance. [] HENT: Normocephalic, atraumatic, bilateral external ears normal, oropharynx moist, no oral exudates, nose normal. [] Eyes: PERRLA, EOMI, conjunctiva normal, no discharge. [] Neck: Normal range of motion, no tenderness, supple, no stridor. [] Cardiovascular:Heart rate regular rhythm, no murmur [] Lungs & Thorax: Bilateral breath sounds clear to auscultation [] Abdomen: Bowel sounds normal, soft, rectal tenderness, no masses, no pulsatile m asses. Complaints of constipation. Complains of bright red rectal bleeding after defecation. Exam has 2 small hemorrhoids external. Has hard stool in rectal vault. Does have a rectal fissure. Skin: Warm, dry, no erythema, no rash. [] Back: No tenderness, no CVA tenderness. [] Extremities: No tenderness, no cyanosis, no clubbing, ROM intact, no edema. [] Neurologic: Alert and oriented X 3, normal motor function, normal sensory function, no focal deficits noted. [] Psychologic: Affect anxious, judgement normal, mood normal. [] EKG: EKG: [] Radiology/Procedures: Radiology/Procedures: [] Heart Score: Risk Factors: Risk Factors: DM, Current or recent (<one month) smoker, HTN, HLP, family history of CAD, obesity. Risk Scores: Score 0 - 3: 2.5% MACE over next 6 weeks - Discharge Home Score 4 - 6: 20.3% MACE over next 6 weeks - Admit for Clinical Observation Score 7 - 10: 72.7% MACE over next 6 weeks - Early Invasive Strategies Course & Med Decision Making: Course & Med Decision Making Pertinent Labs and Imaging studies reviewed. (See chart for details) Patient received a rectal suppository of glycerin. Patient do sits baths. And apply to dubicaine ointment as needed for pain. Patient avoid constipation if necessary take milk of mag every night. Increase fiber in diet and fluid. Use Anusol suppositories every 6 hours as needed. Follow-up with primary care. Consider follow-up with GI if this becomes a persistent problem. Impression: 1. Rectal bleeding-appears to be coming from rectal fissure and hemorrhoids 2. Constipation [] Dragon Disclaimer: Dragon Disclaimer: This electronic medical record was generated, in whole or in part, using a voice recognition dictation system. Departure Departure: Referrals: TONIE BAH (PCP) Scripts Hydrocortisone Acetate (ANUSOL-HC) 25 Mg Supp.rect 25 MG RC QIDPRN PRN for PAIN, #30 SUPP.RECT Prov: CAMERON SUBRAMANIAN MD 11/07/20 Dibucaine (DIBUCAINE) 28 Gm Oint...g. 28 GM RC QIDPRN PRN for RECTAL PAIN, #30 MISC Prov: CAMERON SUBRAMANIAN MD 11/07/20 CAMERON SUBRAMANIAN MD Nov 07, 2020 22:45
[2020-11-07] MEDS ORDERED: GLYCERIN ADULT 1 SUPP.RECT. ONE (23:09)
[2020-11-07 23:12] VITALS: BP 129/72
[2020-11-07] MEDS ORDERED: HYDR25SU18 RC (23:20)
[2020-11-07] MEDS ORDERED: DIBU28OI RC (23:20)
[2020-11-07] MEDS ORDERED: MAGNESIUM HYDROXIDE 2,400 MG/30 ML ORAL.SUSP. PO ONE (23:30)
[2020-11-07] MEDS ORDERED: GLYCERIN ADULT 1 SUPP.RECT. PR ONE (23:30)
[2020-11-07 23:51] LABS: BACTERIA,URINE 0 /HPF (0-FEW); BILIRUBIN,URINE NEG (NEG); CLARITY,URINE CLEAR; COLOR,URINE YELLOW; GLUCOSE,URINE NEG (NEG); NITRITE,URINE NEG (NEG); RBC,URINE 0 /HPF (0-2); SQUAMOUS EPITHELIAL CELL,UR MANY /LPF; UROBILINOGEN,URINE 0.2 mg/dL (0.2 mg/dL)
[2020-11-07 23:56] LABS: BARBITURATES NEG (NEG); BENZODIAZEPINES NEG (NEG); CANNABINOIDS NEG (NEG); COCAINE NEG (NEG); METHADONE NEG (NEG); OPIATES NEG (NEG); PHENCYCLIDINE NEG (NEG)
[2020-11-08 00:08] LABS: AMPHETAMINE/METHAMPHETAMINE NEG (NEG)
== END 2020-11-07 23:30 | disposition home or self-care (01) ==
LOC: ER 22:12
DX: O22.41 Hemorrhoids in pregnancy, first trimester (principal); K59.00 Constipation, unspecified; F41.9 Anxiety disorder, unspecified; E05.90 Thyrotoxicosis, unspecified without thyrotoxic crisis or storm; F17.210 Nicotine dependence, cigarettes, uncomplicated; Z98.890 Other specified postprocedural states
CPT/HCPCS: 36415; 80307; 81001; 81025; 99283

== ENCOUNTER 2020-12-17 11:32 | Emergency (ER) | payer OTHER ==
[~2020-12-17] VITALS: Ht 152.4 cm; Wt 75.4 kg
[~2020-12-17 11:32] MED LIST changes: +DIBU28OI RC; +HYDR25SU18 RC
--- NOTE | 2020-12-17 12:41 | PHYS DOC ---
Past History Past Medical History: Anxiety, Hyperthyroid Additional Past Medical Histor: chronic back/jaw pain seasional allergies, miscarriage Past Surgical History: Other Additional Past Surgical Histo: D&C 06/10/20 Smoking: Cigarettes Alcohol Use: Rarely Drug Use: None Adult General Chief Complaint Chief Complaint: ABDOMINAL PAIN IN HPI HPI Patient is a 30-year-old female with a past medical history of hypothyroidism currently 12 weeks by last menstrual period now presenting to emergency department complaining of new onset abdominal pain. Patient had several other thoughts refreshers developed a sensation of pain that primarily started in the left flank and left back to radiate to the anterior epigastric region and into the right upper flank. Patient states is associated mild nausea but denies any fever, chills, chest pain or shortness of breath. Denies any dysuria or vaginal bleeding. Patient is here because she is concerned about the baby 1 to make sure breathing is okay. Review of Systems Review of Systems Constitutional: Denies fever or chills [] Eyes: Denies change in visual acuity, redness, or eye pain [] HENT: Denies nasal congestion or sore throat [] Respiratory: Denies cough or shortness of breath [] Cardiovascular: No additional information not addressed in HPI [] GI: Denies abdominal pain, nausea, vomiting, bloody stools or diarrhea [] : Denies dysuria or hematuria [] Musculoskeletal: Denies back pain or joint pain [] Integument: Denies rash or skin lesions [] Neurologic: Denies headache, focal weakness or sensory changes [] Endocrine: Denies polyuria or polydipsia [] All other systems were reviewed and found to be within normal limits, except as documented in this note. Allergies Allergies Allergies Coded Allergies Type Severity Reaction Last Updated Verified No Known Drug Allergies 12/17/20 No Physical Exam Physical Exam Constitutional: Well developed, well nourished, no acute distress, non-toxic appearance. [] HENT: Normocephalic, atraumatic, bilateral external ears normal, oropharynx moist, no oral exudates, nose normal. [] Eyes: PERRLA, EOMI, conjunctiva normal, no discharge. [] Neck: Normal range of motion, no tenderness, supple, no stridor. [] Cardiovascular:Heart rate regular rhythm, no murmur [] Lungs & Thorax: Bilateral breath sounds clear to auscultation [] Abdomen: Bowel sounds normal, soft, no tenderness, no masses, no pulsatile masses. [] Skin: Warm, dry, no erythema, no rash. [] Back: No tenderness, no CVA tenderness. [] Extremities: No tenderness, no cyanosis, no clubbing, ROM intact, no edema. [] Neurologic: Alert and oriented X 3, normal motor function, normal sensory function, no focal deficits noted. [] Psychologic: Affect normal, judgement normal, mood normal. [] Current Patient Data Vital Signs Vital Signs Date Time Temp Pulse Resp B/P (MAP) Pulse Ox O2 Delivery O2 Flow Rate FiO2 12/17/20 11:35 97.9 83 12 112/57 (75) 97 Room Air EKG EKG [] Radiology/Procedures Radiology/Procedures [] Heart Score C/O Chest Pain: No Risk Factors: Risk Factors: DM, Current or recent (<one month) smoker, HTN, HLP, family history of CAD, obesity. Risk Scores: Risk Factors: DM, Current or recent (<one month) smoker, HTN, HLP, family history of CAD, obesity. Course & Med Decision Making Course & Med Decision Making Pertinent Labs and Imaging studies reviewed. (See chart for details) 30-year-old female nonspecific abdominal pain in . Will obtain labs and ultrasound to make sure there is no evidence of ectopic or miscarriage and if is negative feel the patient can be safely discharged home. Dragon Disclaimer Dragon Disclaimer This electronic medical record was generated, in whole or in part, using a voice recognition dictation system. Departure Departure: Disposition: 01 DC HOME SELF CARE/HOMELESS Condition: STABLE Referrals: TONIE BAH (PCP) RUBIA GARCIA MD Dec 17, 2020 12:41
[2020-12-17 12:50] LABS: BASO % 0 % (0-3); EOS % 0 % (0-3); HEMATOCRIT 37.9 % (36.0-47.0); HEMOGLOBIN 12.7 g/dL (12.0-15.5); LYMPH # 1.6 x10^3/uL (1.0-4.8); LYMPH % 20 % (24-48); MEAN CORPUSCULAR HEMOGLOBIN 28 pg (25-35); MEAN CORPUSCULAR HGB CONC 34 g/dL (31-37); MEAN CORPUSCULAR VOLUME 84 fL (79-100); MONO # 0.5 x10^3/uL (0.0-1.1); MONO % 7 % (0-9); NEUT # 5.7 x10^3uL (1.8-7.7); NEUT % 73 % (31-73); PLATELET COUNT 221 x10^3/uL (140-400); RED BLOOD COUNT 4.53 x10^6/uL (3.50-5.40); RED CELL DISTRIBUTION WIDTH 17.7 % (11.5-14.5); WHITE BLOOD COUNT 7.8 x10^3/uL (4.0-11.0)
--- NOTE | 2020-12-17 12:56 | RAD ---
US OB <14 WKS +TV History: Reason: abdominal pain / Spl. Instructions: / History: Comparison: September 19, 2020. Technique: Grayscale and color Doppler imaging of the pelvis was performed using transabdominal and t ransvaginal technique. Findings: The uterus measures 11.2 x 8.4 x 6.7 cm. Cervical length 3.1 cm. Single intrauterine gestational sac with regular appearance. Amniotic fluid within normal limits. Yol k sac not identified. Embryo measures 5.5 cm. Estimated gestational age by ultrasound 12 weeks 1 day. heart rate 185 bpm. Right ovary not identified due to positioning and overlying structures. Left ovary measures 2.2 x 2.7 x 1.9 cm. Normal Doppler blood flow. No adnexal masses are seen. IMPRESSION: 1. Single intrauterine with gestational age 12 weeks 1 day heart rate 185 bpm. Recom mend routine anatomic screening at 18-22 weeks. Electronically signed by: Israel Neville DO (12/17/2020 12:54 PM) [id number]
[2020-12-17 13:00] LABS: CALCIUM 8.6 mg/dL (8.5-10.1); CREATININE 0.5 mg/dL (0.6-1.0); GFR 143.9; POTASSIUM 3.7 mmol/L (3.5-5.1)
[2020-12-17 13:03] LABS: ALBUMIN 3.2 g/dL (3.4-5.0); ALBUMIN/GLOBULIN RATIO 0.7 (1.0-1.7); TOTAL BILIRUBIN 0.3 mg/dL (0.2-1.0); TOTAL PROTEIN 7.5 g/dL (6.4-8.2)
[2020-12-17 13:55] VITALS: BP 120/71
[2020-12-17 14:29] LABS: BILIRUBIN,URINE NEG (NEG); CLARITY,URINE HAZY; COLOR,URINE YELLOW; GLUCOSE,URINE NEG (NEG)
[2020-12-17 14:30] LABS: BACTERIA,URINE 0 /HPF (0-FEW); NITRITE,URINE NEG (NEG); RBC,URINE OCC /HPF (0-2); SQUAMOUS EPITHELIAL CELL,UR MANY /LPF; UROBILINOGEN,URINE 0.2 mg/dL (0.2 mg/dL); WBC,URINE OCC /HPF (0-4)
== END 2020-12-17 13:57 | disposition home or self-care (01) ==
LOC: ER 11:32
DX: O26.891 Other specified pregnancy related conditions, first trimester (principal); R10.13 Epigastric pain; R11.0 Nausea; O99.331 Smoking (tobacco) complicating pregnancy, first trimester; Z3A.12 12 weeks gestation of pregnancy
CPT/HCPCS: 36415; 76801; 76817; 80053; 81001; 83690; 85025; 99284

== ENCOUNTER → 2021-02-17 | Outpatient (CLI) | payer OTHER ==
--- NOTE | 2021-02-17 13:54 | RAD ---
EXAM: OB ULTRASOUND, > 14 WEEKS HISTORY: anatomy survey. COMPARISON: 12/17/2020. TECHNIQUE: Multiple grayscale images, color Doppler, and M-mode images of the uterus are obtained. FINDINGS: There is a single intrauterine gestation in variable presentation. The placenta is anterior in locati on without evidence of placenta previa. The amount of amniotic fluid appears appropriate. Amniotic f luid index is 15.2 cm. Cervical length is 4.5 cm. Biometrical data: BPD = 5.1 cm for 21 weeks 3 days. HC = 18.4 cm for 20 weeks 5 days. AC = 16.4 cm for 21 weeks 3 days. FL = 3.4 cm for 20 weeks 5 days. HC/AC ratio = 1.1. Overall, the estimated sonographic gestational age is 21 weeks and 1 day for an estimated date of del conrad of 06/29/2021. The estimated date of delivery provided by the last menstrual period is 07/01/2021 . Estimated weight is 399 grams. A 4 chamber heart is identified with positive cardiac activity. The estimated heart rate is 168 beats per minute. Bilateral upper and lower extremities are identified. There is a three-vessel cord with cord insertion visualized. stomach and urinary bladder are identified. Both kidneys are seen. The spine and facial profile are not well seen due to presentation.. brain is gross ly unremarkable. No obvious anatomic abnormalities are identified. The maternal ovaries are not identified in the adnexa due to overlying bowel gas. IMPRESSION: 1. Single intrauterine fetus with normal heart rate and gestational age based on ultrasound measureme nts of 21 weeks and 1 day. 2. Suboptimal evaluation of the spine and facial profile due to presentation. The r emainder of the survey is unremarkable. Electronically signed by: Padmini Sagastume MD (02/17/2021 1:51 PM) [id number]
== END ==
LOC: US 12:36
PROVIDERS: ATTEND Obstetrics & Gynecology
DX: Z34.92 Encounter for supervision of normal pregnancy, unspecified, second trimester (principal); Z3A.21 21 weeks gestation of pregnancy
CPT/HCPCS: 76805

== ENCOUNTER 2021-03-05 09:59 | Emergency (ER) | payer OTHER ==
[~2021-03-05] VITALS: Ht 152.4 cm; Wt 81.0 kg
--- NOTE | 2021-03-05 10:18 | PHYS DOC ---
Past History Past Medical History: Anxiety, Hyperthyroid Additional Past Medical Histor: chronic back/jaw pain seasional allergies, miscarriage Past Surgical History: Other Additional Past Surgical Histo: D&C 06/10/20 Smoking: Cigarettes Alcohol Use: Rarely Drug Use: None Adult General Chief Complaint Chief Complaint: FOOT INJURY PAIN [facility] HPI Patient is a 30-year-old female presenting for left foot pain. Reports suffering a mechanical fall at home, was extricating bouncy ball pit at home when she tripped over one of her sons toys falling forwards. Unsure if she suffered an inversion twisting motion of left foot but admits focal pain to thir d, fourth and fifth toes and base of fifth metatarsal. Also admits she is , reports being 26 weeks, is unsure how many days along. She is . No abdominal pain, loss of fluid, vaginal bleeding or other concerning signs or symptoms reported, appropriately wanting to make sure baby is okay Review of Systems Review of Systems Fourteen body systems of review of systems have been reviewed. See HPI for pertinent positives and negative responses, other w[place]rop all other systems are negative, non-pertinent or non-contributory Allergies Allergies Allergies Coded Allergies Type Severity Reaction Last Updated Verified No Known Drug Allergies 12/17/20 No Physical Exam Physical Exam Constitutional: Well developed, well nourished, no acute distress, non-toxic appearance. HENT: Normocephalic, atraumatic, bilateral external ears normal, oropharynx moist, no oral exudates, nose normal. Eyes: PERRLA, EOMI, conjunctiva normal, no discharge. Neck: Normal range of motion, no tenderness, supple, no stridor. Cardiovascular: Heart rate regular, sinus rhythm, no murmurs rubs or gallops Lungs & Thorax: Bilateral breath sounds clear to auscultation Abdomen: Bowel sounds normal, soft and gravid, no tenderness, no masses, no pulsatile masses. Nonsurgical abdomen, no peritoneal signs. heart tones 158 Skin: Warm, dry, no erythema, no rash. Back: No tenderness, no CVA tenderness. Extremities: Tenderness present to the base of left fifth metatarsal and point tenderness with palpation of the third, fourth and fifth toes without any palpable and/or visual abnormalities, no cyanosis, no clubbing, ROM intact, no edema. Cap refill less than 3 seconds in all distal digits. Formal examination of left hip, knee, fibular head, ankle and foot unremarkable besides noted pain at base of fifth metatarsal indicating positive [place] foot Neurologic: Alert and oriented X 3, normal motor & sensory function, no focal deficits noted. Psychologic: Affect normal, judgement normal, mood normal. Current Patient Data Vital Signs Vital Signs Date Time Temp Pulse Resp B/P (MAP) Pulse Ox O2 Delivery O2 Flow Rate FiO2 03/05/21 10:14 97.5 95 20 113/74 (87) 100 Room Air Vital Signs Date Time Temp Pulse Resp B/P (MAP) Pulse Ox O2 Delivery O2 Flow Rate FiO2 03/05/21 10:14 97.5 95 20 113/74 (87) 100 Room Air EKG EKG [] Radiology/Procedures Radiology/Procedures EXAM: Left foot, 3 views. HISTORY: Pain. COMPARISON: None. FINDINGS: 3 views of the left foot are obtained. There is no acute fracture, dislocation or subluxation. There is no foreign body. IMPRESSION: No acute osseous finding. Electronically signed by: Padmini Sagastume MD (03/05/2021 10:57 AM) [id number] Heart Score C/O Chest Pain: No Risk Factors: Risk Factors: DM, Current or recent (<one month) smoker, HTN, HLP, family history of CAD, obesity. Risk Scores: Risk Factors: DM, Current or recent (<one month) smoker, HTN, HLP, family history of CAD, obesity. Course & Med Decision Making Course & Med Decision Making Discussed with the patient all findings and diagnostic testing. I discussed most likely diagnosis of foot contusion/strain/sprain. heart tones appropriate with patient feeling baby move, I discussed little indication for further advanced/diagnostic work-up in ER setting given patient's state. As such, continued supportive care was advised for patient's foot. I stressed need for close outpatient follow-up with primary care physician and EMERGENCY PLANNING AND RESPONSE MANAGER to review today's ER visit. Strict return precautions were also discussed at length with good understanding by patient. Patient voiced understanding and agreement with the plan. Patient knows to come back for repeat evaluation if concerning signs or symptoms present prior to outpatient follow-up. Hemodynamically stable, ambulatory and well-appearing at time of disposition. Dragon Disclaimer Dragon Disclaimer This electronic medical record was generated, in whole or in part, using a voice recognition dictation system. Departure Departure: Impression: Primary Impression: Left foot pain Additional Impression: and not yet delivered in second trimester Disposition: 01 HOME / SELF CARE / HOMELESS Condition: STABLE Referrals: TONIE BAH (PCP) Patient Instructions: Ankle Pain, RICE - Routine Care for Injuries Additional Instructions: It is likely that you have experienced a sprain/strain/contusion that is causing you pain. The best treatment for this injury is continued range of motion to prevent a frozen joint. A Rest, Ice, Compression, Elevation (RICE) strategy may also be helpful in the acute phase. Your remaining physical examination and vital signs were grossly unremarkable, no further indication for other diagnostic work-up in ER setting. As discussed, you need to contact your primary care physician and EMERGENCY PLANNING AND RESPONSE MANAGER to review your ER visit today and discuss next steps in care. If any concerning signs or symptoms present prior to outpatient follow-up please do not hesitate to come back for repeat evaluation. It was a pleasure to take care of you and I wish you the best going forward Problem Qualifiers JANINE KO DO Mar 05, 2021 10:18
--- NOTE | 2021-03-05 11:00 | RAD ---
EXAM: Left foot, 3 views. HISTORY: Pain. COMPARISON: None. FINDINGS: 3 views of the left foot are obtained. There is no acute fracture, dislocation or subluxati on. There is no foreign body. IMPRESSION: No acute osseous finding. Electronically signed by: Padmini Sagastume MD (03/05/2021 10:57 AM) [id number]
== END 2021-03-05 11:17 | disposition home or self-care (01) ==
LOC: ER 09:59
DX: O26.892 Other specified pregnancy related conditions, second trimester (principal); M79.672 Pain in left foot; Z3A.26 26 weeks gestation of pregnancy; W01.0XXA Fall on same level from slipping, tripping and stumbling without subsequent striking against object, initial encounter; Y93.89 Activity, other specified; Y92.89 Other specified places as the place of occurrence of the external cause; Y99.8 Other external cause status
CPT/HCPCS: 73630; 99283-25

== ENCOUNTER → 2021-03-13 | Outpatient (CLI) | payer OTHER ==
[2021-03-05 10:14] VITALS: BP 113/74
--- NOTE | 2021-03-14 08:38 | RAD ---
CLINICAL HISTORY: OB LIMITED FOR SPINE AND PROFILE COMPARISON: None available. TECHNIQUE: Limited transabdominal ultrasound of the uterus was performed. FINDINGS: There is a single live fetus in transverse position with head towards the maternal right. Cardiac act ivity is visualized and documented at a rate of 152 beats per minute. The placenta is anterior with placenta previa. The amniotic fluid is normal for gestational stage. T he amniotic fluid index is 15.9 centimeters. The cervix measures 7.1 cm in length. measurements/aging was not performed per clinical request. IMPRESSION: Single live intrauterine gestation in transverse position, with a heart rate of 152 bpm Electronically signed by: Oj White MD (03/14/2021 8:36 AM) DANIEL
== END ==
LOC: US 14:45
PROVIDERS: ATTEND Obstetrics & Gynecology
DX: Z34.92 Encounter for supervision of normal pregnancy, unspecified, second trimester (principal); Z3A.00 Weeks of gestation of pregnancy not specified
CPT/HCPCS: 76815

== ENCOUNTER → 2021-04-03 | Outpatient (CLI) | payer OTHER ==
[2021-03-05 10:14] VITALS: BP 113/74
[2021-04-03 15:32] LABS: BASO % 0 % (0-3); EOS % 0 % (0-3); HEMATOCRIT 35.2 % (36.0-47.0); LYMPH # 1.9 x10^3/uL (1.0-4.8); LYMPH % 15 % (24-48); MEAN CORPUSCULAR HEMOGLOBIN 31 pg (25-35); MEAN CORPUSCULAR HGB CONC 34 g/dL (31-37); MEAN CORPUSCULAR VOLUME 91 fL (79-100); MONO # 0.9 x10^3/uL (0.0-1.1); MONO % 7 % (0-9); NEUT # 9.8 x10^3uL (1.8-7.7); NEUT % 78 % (31-73); PLATELET COUNT 226 x10^3/uL (140-400); RED BLOOD COUNT 3.87 x10^6/uL (3.50-5.40); RED CELL DISTRIBUTION WIDTH 13.7 % (11.5-14.5); WHITE BLOOD COUNT 12.6 x10^3/uL (4.0-11.0)
[2021-04-04 11:46] LABS: FREE T4 0.89 ng/dL (0.76-1.46); THYROID STIM HORMONE (TSH) 0.066 uIU/mL (0.358-3.740)
== END ==
LOC: LAB 12:58
PROVIDERS: ATTEND Obstetrics & Gynecology
DX: Z34.92 Encounter for supervision of normal pregnancy, unspecified, second trimester (principal)
CPT/HCPCS: 36415; 82950; 84439; 84443; 85025

== ENCOUNTER 2021-05-29 10:23 | Emergency (ER) | payer OTHER ==
[~2021-05-29] VITALS: Ht 152.4 cm; Wt 90.1 kg
--- NOTE | 2021-05-29 11:10 | PHYS DOC ---
Past History Past Medical History: No Pertinent History Additional Past Medical Histor: chronic back/jaw pain seasional allergies, miscarriage (YEIMY ANDRE APRN) Past Surgical History: No Surgical History Additional Past Surgical Histo: D&C 06/10/20 (YEIMY ANDRE APRN) Smoking: Cigarettes Alcohol Use: None Drug Use: None (YEIMY ANDRE APRN) Adult General Chief Complaint Chief Complaint: FATIGUE HPI HPI Patient is a 30-year-old female presents emergency department reporting exposures to COVID-19 virus. Patient reports being tested this past Tuesday and should know her results today. Patient states since discovering she was exposed to the COVID-19 virus she has developed a cough and is concerned she might give the COVID-19 virus to her baby. Patient is 35 weeks 2 days , 3 para 2, no problems with current , denies vaginal discharge, denies vaginal bleeding, denies abdominal pain, abdominal cramping, nausea, vomiting, or diarrhea. Patient denies heart palpitations, denies chest pain, denies diaphoretic episodes, denies headaches, fever or chills, loss of taste or loss of smell, denies visual disturbances, dizziness, states that she can feel the baby move. Patient denies numbness or tingling to her extremities. Patient denies other physical complaints or physical concerns. Patient reports taking the vitamin, elderberry Gummies, Zoloft, Benadryl, Zyrtec, Singulair. Patient denies being vaccinated for the COVID-19 virus. Denies allergies to medications. Reports OB care with OB specialist Dr. Neville. (YEIMY ANDRE APRN) Review of Systems Review of Systems 14 body systems of review of systems have been reviewed. See HPI for pertinent positives and negative responses, otherwise all other systems are negative, nonpertinent or noncontributory. Constitutional: Negative except as outlined in HPI above. Skin: Negative except as outlined in HPI above. Eyes: Negative except as outlined in HPI above. HENT: Negative except as outlined in HPI above. Respiratory: Negative except as outlined in HPI above. Cardiovascular: Negative except as outlined in HPI above. GI: Negative except as outlined in HPI above. : Negative except as outlined in HPI above. Musculoskeletal: Negative except as outlined in HPI above. Integument: Negative except as outlined in HPI above. Neurologic: Negative except as outlined in HPI above. Endocrine: Negative except as outlined in HPI above. Lymphatic: Negative except as outlined in HPI above. Psychiatric: Negative except as outlined in HPI above. (YEIMY ANDRE APRN) Allergies Allergies Allergies Coded Allergies Type Severity Reaction Last Updated Verified No Known Drug Allergies 12/17/20 No (YEIMY ANDRE APRN) Physical Exam Physical Exam Constitutional: Well developed, well nourished, no acute distress, non-toxic appearance. 30-year-old female in no apparent distress. HENT: Normocephalic, atraumatic. Eyes: Conjunctiva normal, no discharge. Neck: Normal range of motion, no stridor. Cardiovascular: No cyanosis appreciated, distal cap refill less than 2 seconds. Heart rate slightly tachycardic 103 bpm during physical examination, heart sounds S1-S2 no station. Lungs & Thorax: Patient is in no respiratory distress, no audible adventitious lung sounds appreciated. Lung sounds clear to auscultation all lung cosby. Abdomen: Nontender, no abnormalities noted. Patient morbidly obese Skin: Warm, dry, no erythema, no rash. Back: No tenderness, no deformities. Extremities: No tenderness, no cyanosis, no clubbing, ROM intact, no edema. Neurologic: Alert and oriented X 3, normal motor function, normal sensory function, no focal deficits noted. Psychologic: Affect normal, judgement normal, mood normal. (YEIMY ANDRE APRN) Current Patient Data Vital Signs Vital Signs Date Time Temp Pulse Resp B/P (MAP) Pulse Ox O2 Delivery O2 Flow Rate FiO2 05/29/21 10:44 97.9 120 16 147/89 98 Room Air (YEIMY ANDRE APRN) EKG EKG [] (YEIMY ANDRE APRN) Radiology/Procedures Radiology/Procedures PATIENT: SHIN STYLES ACCOUNT: [id number] : 1990 LOCATION: ER AGE: 30 SEX: F EXAM STATUS: REG ER ORD. PHYSICIAN: YEIYM ANDRE APRN REASON: Short of breath PROCEDURE: CHEST AP ONLY EXAM: CHEST 1 VIEW History: Shortness of breath COMPARISON: 03/27/2013 TECHNIQUE: Single portable radiograph of the chest FINDINGS: The cardiac silhouette is unremarkable. The lungs are clear bilaterally. The costophrenic sulci are clear and well demarcated. IMPRESSION: No radiographic evidence of an acute cardiopulmonary process. Electronically signed by: Ra Slaughter MD (05/29/2021 11:36 AM) [id number] (YEIMY ANDRE APRN) Heart Score C/O Chest Pain: No Risk Factors: Risk Factors: DM, Current or recent (<one month) smoker, HTN, HLP, family history of CAD, obesity. Risk Scores: Risk Factors: DM, Current or recent (<one month) smoker, HTN, HLP, family history of CAD, obesity. (YEIMY ANDRE APRN) Course & Med Decision Making Course & Med Decision Making Pertinent Labs and Imaging studies reviewed. (See chart for details) 30-year-old female, vital signs reviewed, presents emergency department concerning COVID-19 virus exposure. Patient's initial heart rate during triage was 120, patient has risk factors for preeclampsia to include BMI 38.8. Will order preeclampsia work-up. movement present during abdominal examination, heart tones 170, pe nding labs at this time. CBC, CMP, urinalysis as a unremarkable, not concerning for preeclampsia. Heart rate 96 bpm, patient is 99% on room air, no respiratory distress, lung sounds clear to auscultate, this is unlikely a preeclampsia syndrome. We will diagnosed patient with PUI. Discussed findings with patient, will provide PUI information on discharge instructions, strict follow-up with [facility] for ongoing symptoms, patient is amenable to ED discharge planning, discussed with the patient all findings and diagnostic testing as well as the need to follow-up with their primary care provider for further evaluation and treatment or return to the ED if any new or worsening symptoms. Strict return precautions were also discussed at length, the patient voiced understanding and agreement with the discharge planning. The patient was nontoxic in appearance, in no apparent distress, and hemodynamically stable at the time of disposition. (YEIMY ANDRE APRN) Dragon Disclaimer Dragon Disclaimer This electronic medical record was generated, in whole or in part, using a voice recognition dictation system. (YEIMY ANDRE APRN) Attending Co-Sign The patient was seen and interviewed as well as examined at the bedside. The chart was reviewed. The case was discussed. Agree with the plan of care. (BURTON DAVILA DO) Departure Departure: Impression: Primary Impression: Person under investigation for COVID-19 Disposition: 01 HOME / SELF CARE / HOMELESS Condition: GOOD Referrals: TONIE BAH (PCP) Additional Instructions: You were seen today in the emergency department after a potential of exposure to the COVID-19 virus. You have indicated that you were tested and should receive results today. I have attached information to this document regarding home care for COVID-19 virus patients. Please review. An extensive work-up related to your to rule out preeclampsia was done today. No signs or concerns for preeclampsia. Your chest x-ray did not show any concerns for pneumonia or the COVID-19 virus or other infections. Please keep your normal appointments with your [facility], return to the emergency department for worsening symptoms or other concerns. Thank you for visiting our Emergency Department. It was a pleasure taking care of you today in the emergency department and we appreciate you trusting us with your care. If any additional problems come up don't hesitate to return to visit us. Please follow up with your primary care provider so they can plan additional care if needed and know about the problem that you had. If symptoms worsen come back to the Emergency Department. Any concerning symptoms that start such as chest pain, shortness of air, weakness or numbness on one side of the body, running high fevers or any other concerning symptoms return to the ER. You have been tested for or diagnosed with COVID-19. It is an infection caused by a new type of coronavirus. COVID-19 will cause cold-like or mild flu symptoms in most. It can cause more severe symptoms like problems breathing in some. There is no treatment for COVID-19. The body will clear the infection over time. Self-care will help to ease discomfort. Steps to Take: Self-Care Rest as needed. Healthy habits may help you feel better. Steps include: Choose healthy foods including fruits and vegetables. Drink water throughout the day. Get plenty of sleep each night. If you smoke, try to quit. It may ease breathing. Avoid alcohol. Keep Others Healthy The virus can spread to others. Droplets are released every time you sneeze or cough. The droplets can get into the mouth, nose, or eyes of people near you and lead to infection. To lower the chances of spreading COVID-19 to others: Stay at home until your doctor has said it is safe to leave. If you tested positive this will mean staying isolated until both of the following are true: At least 7 days have passed since the start of illness. You are free of fever for at least 72 hours without the use of medicine. During this time: - Avoid public areas, events, or transportation. Do not return to work or school until your doctor has said it is safe to do so. - Call ahead if you need to go to a medical center. Let them know you may have COVID-19. It will help them guide you where to go. They may also ask you to wear a facemask when you come to the office. - If you call for emergency medical services, let them know you may have COVID- 19. While at home: - Try to avoid close contact with others. Stay about 6 feet away. - If possible, spend most of your time in a separate room from others. - Use a face mask if you will be in close contact with others such as sharing a room or vehicle. - Have someone wipe down common surfaces in the home. Use household tank setter every day on areas like doorknobs, counters, or sinks. - Cough or sneeze into a tissue. Throw the tissue away right after use. If a tissue is not available, cough or sneeze into your elbow. - Wash your hands often. Wash them after sneezing or coughing. Use soap and water and wash for at least 20 seconds. Alcohol based hand metal cleaner can be used if soap and water is not available. - Do not prepare food for others. Avoid sharing personal items like forks, spoons, or toothbrushes. - Avoid close contact with pets while you are sick. There is no evidence of the virus passing to pets. This is a safety step until more is known about this virus. Isolation can be frustrating. Social interaction can help. Keep in touch with friends and family through phone and tech options. You can still interact with others in your home, just keep a safe distance of about 6 feet. Follow-up: Your doctors office will check in with you to see if there are any changes in your health. You may be asked to keep track of symptoms to share with them. They will also let you know when you are clear to be in public again. Problems to Look Out For: Contact your doctor if your recovery is not going as you expect. Get emergency care if you have problems such as: - Trouble breathing - Nonstop chest pain or pressure - Changes in awareness, confusion, or problems waking - Lips or face have bluish color - Worsening of symptoms If you think you have an emergency, call for emergency medical services right away. As taken from [facility] YEIMY ANDRE APRN May 29, 2021 11:10 BURTON DAVILA DO May 30, 2021 11:14
[2021-05-29 11:18] LABS: BILIRUBIN,URINE NEG (NEG); CLARITY,URINE HAZY; COLOR,URINE YELLOW; GLUCOSE,URINE 100 mg/dL (NEG); NITRITE,URINE NEG (NEG); UROBILINOGEN,URINE 0.2 mg/dL (0.2 mg/dL)
[2021-05-29 11:22] LABS: BACTERIA,URINE MOD /HPF (0-FEW); RBC,URINE 0 /HPF (0-2); SQUAMOUS EPITHELIAL CELL,UR MANY /LPF
[2021-05-29 11:23] VITALS: BP 137/77
--- NOTE | 2021-05-29 11:38 | RAD ---
EXAM: CHEST 1 VIEW History: Shortness of breath COMPARISON: 03/27/2013 TECHNIQUE: Single portable radiograph of the chest FINDINGS: The cardiac silhouette is unremarkable. The lungs are clear bilaterally. The costophrenic sulci are clear and well demarcated. IMPRESSION: No radiographic evidence of an acute cardiopulmonary process. Electronically signed by: Ra Slaughter MD (05/29/2021 11:36 AM) [id number]
[2021-05-29 11:43] LABS: BASO % 0 % (0-3); EOS % 0 % (0-3); HEMATOCRIT 33.1 % (36.0-47.0); HEMOGLOBIN 11.1 g/dL (12.0-15.5); LYMPH # 1.4 x10^3/uL (1.0-4.8); LYMPH % 13 % (24-48); MEAN CORPUSCULAR HEMOGLOBIN 28 pg (25-35); MEAN CORPUSCULAR HGB CONC 34 g/dL (31-37); MEAN CORPUSCULAR VOLUME 84 fL (79-100); MONO # 0.5 x10^3/uL (0.0-1.1); MONO % 5 % (0-9); NEUT % 82 % (31-73); PLATELET COUNT 183 x10^3/uL (140-400); RED BLOOD COUNT 3.92 x10^6/uL (3.50-5.40); RED CELL DISTRIBUTION WIDTH 13.5 % (11.5-14.5)
[2021-05-29 11:54] LABS: CALCIUM 8.6 mg/dL (8.5-10.1); CREATININE 0.4 mg/dL (0.6-1.0); GFR 186.2; POTASSIUM 3.5 mmol/L (3.5-5.1)
[2021-05-29 12:00] LABS: ALBUMIN 2.5 g/dL (3.4-5.0); ALBUMIN/GLOBULIN RATIO 0.6 (1.0-1.7); TOTAL BILIRUBIN 0.3 mg/dL (0.2-1.0); TOTAL PROTEIN 6.7 g/dL (6.4-8.2); URIC ACID 3.4 mg/dL (2.6-6.0)
== END 2021-05-29 12:36 | disposition home or self-care (01) ==
LOC: ER 10:23
DX: O26.893 Other specified pregnancy related conditions, third trimester (principal); R05 Cough; O99.333 Smoking (tobacco) complicating pregnancy, third trimester; Z20.822 Contact with and (suspected) exposure to COVID-19; Z3A.35 35 weeks gestation of pregnancy
CPT/HCPCS: 36415; 71045; 80053; 81001; 84550; 85025; 85610; 85730; 86850; 86900; 86901; 87086; 99284

== ENCOUNTER 2021-06-01 10:50 | Emergency (ER) | payer OTHER ==
[~2021-06-01] VITALS: Ht 152.4 cm; Wt 97.5 kg
--- NOTE | 2021-06-01 11:40 | PHYS DOC ---
Past History Past Medical History: No Pertinent History Additional Past Medical Histor: chronic back/jaw pain seasional allergies, miscarriage Past Surgical History: Other Additional Past Surgical Histo: D&C 06/10/20 Smoking: Cigarettes Alcohol Use: None Drug Use: None General Adult EDM: Chief Complaint: SHORTNESS OF BREATH HPI: HPI: Patient is a 30-year-old female who presents to the ER for yellow productive cough and wheezing for 5 days. Patient was seen in this ER 3 days prior work-up consisting of blood work, urinalysis, chest x-ray. Patient states that she had been previously tested for Covid within the last week and it was negative. Sepideh ent had a positive Covid exposure. Patient is 35 weeks . Her OB is Dr. Neville. She is . Patient is concerned because her symptoms are not improving, she was diagnosed with viral bronchitis 3 days prior. Work-up in the ER 3 days prior was unremarkable. Patient's vital signs are stable, she is afebrile. Patient denies fever, vaginal bleeding, vaginal discharge, pelvic pain or any related complaints. Patient has no medical history. Review of Systems: Review of Systems: 14 body systems of the review of systems have been reviewed. See HPI for pertinent positive and negative responses, otherwise all other systems are negative, nonpertinent or noncontributory Allergies: Allergies: Allergies Coded Allergies Type Severity Reaction Last Updated Verified No Known Drug Allergies 12/17/20 No Physical Exam: PE: Constitutional: Well developed, well nourished, no acute distress, non-toxic appearance. [] HENT: Normocephalic, atraumatic, bilateral external ears normal, oropharynx moist, no oral exudates, nose normal. [] Eyes: PERRL, EOMI, conjunctiva normal, no discharge. [] Neck: Normal range of motion, no stridor Cardiovascular:Heart rate regular rhythm, no murmur [] Lungs & Thorax: Bilateral breath sounds clear to auscultation [] Abdomen: Bowel sounds normal, soft, no tenderness, abdomen Skin: Warm, dry, no erythema, no rash. [] Back: Normal range of motion Extremities: No tenderness, no cyanosis, no clubbing, ROM intact, no edema. [] Neurologic: Alert and oriented X 3, normal motor function, normal sensory f unction, no focal deficits noted. [] Psychologic: Affect normal, judgement normal, mood normal. [] Current Patient Data: Labs: Laboratory Tests Test 06/01/21 11:30 Influenza Type A (Rapid) Negative Influenza Type B (Rapid) Negative Vital Signs: Vital Signs Date Time Temp Pulse Resp B/P (MAP) Pulse Ox O2 Delivery O2 Flow Rate FiO2 06/01/21 11:05 98.2 96 24 152/93 97 Room Air EKG: EKG: [] Radiology/Procedures: Radiology/Procedures: PROCEDURE: CHEST AP ONLY Exam Date: 06/01/2021 11:25 AM XR CHEST 1V Indication: Reason: cough, soa / Spl. Instructions: / History: . Comparison: May 29, 2021 FINDINGS/ IMPRESSION: The cardiac silhouette and pulmonary vasculature are within normal limits. There is no focal consolidation, pleural effusion or pneumothorax. The visualized osseous structures are intact. Electronically signed by: Rolando Alexander MD (06/01/2021 11:46 AM) [facility] DICTATED AND SIGNED BY: ROLANDO ALEXANDER MD DATE: 06/01/21 1146 CC: TONIE BAH; JAMES REILLY [facility] ~MTH0 0 [] Heart Score: C/O Chest Pain: No Risk Factors: Risk Factors: DM, Current or recent (<one month) smoker, HTN, HLP, family histo ry of CAD, obesity. Risk Scores: Score 0 - 3: 2.5% MACE over next 6 weeks - Discharge Home Score 4 - 6: 20.3% MACE over next 6 weeks - Admit for Clinical Observation Score 7 - 10: 72.7% MACE over next 6 weeks - Early Invasive Strategies Course & Med Decision Making: Course & Med Decision Making Pertinent Labs and Imaging studies reviewed. (See chart for details) Patient is a 30-year-old female being seen in the ER for cough and wheezing. Patient was seen in this ER 3 days prior and had blood work, urinalysis, chest x-ray performed and was unremarkable. Patient was tested at a different facility within the last week for COVID-19 and states that it was negative. Patient will be retested for COVID-19 and influenza. A chest x-ray will be repeated to rule out pneumonia. heart tones performed in the ER and they were 144. Pat ient's vital signs are stable, no acute distress. Lung sounds are clear. Influenza test negative. Chest x-ray negative. Patient's Covid test pending and he will be notified of results when they become available in approximately 2 days. Patient advised of self isolate until she receives these results. I discussed with patient all findings and diagnostic testing as well as the need to follow-up with PCP for further evaluation and treatment or return to the ER if any new or worsening symptoms. Strict return precautions were also discussed at length. Patient voiced understanding and agreement with the plan. Patient is hemodynamically stable at the time of disposition. Dragon Disclaimer: Dragon Disclaimer: This electronic medical record was generated, in whole or in part, using a voice recognition dictation system. Departure Departure: Impression: Primary Impression: Person under investigation for COVID-19 Disposition: HOME / SELF CARE / HOMELESS Condition: GOOD Referrals: TONIE BAH (PCP) Patient Instructions: Cough, Adult Additional Instructions: You were seen in the ER today for cough and wheezing. Your physical exam was reassuring and your vital signs were stable. A chest x-ray was performed and it was negative for pneumonia or any other acute findings. You were tested for in fluenza and it was negative. You were tested for COVID-19 and that is pending. You will be notified of those results when they become available in approximately 2 days. Please self isolate until you receive these results. Increase your fluids and continue the medications previously prescribed by your OB for your symptoms. You likely have a viral bronchitis and your symptoms sh ould improve over time. If you develop worsening of your shortness of breath, chest pain, palpitations, high fevers refractory to treatment, intractable nausea or vomiting, or any related concerns please return to the ER. EMERGENCY DEPARTMENT GENERAL DISCHARGE INSTRUCTIONS Thank you for coming to [facility] (ED) today and trusting us with you care. We trust that you had a positivie experience in our Emergency Department. If you wish to speak to the department management, you may call the director at [phone]. YOUR FOLLOW UP INSTRUCTIONS ARE FOLLOWS: 1. Do you have a private Doctor? If you do not have a private doctor, please ask for a resource list of physicians or clinics that may be able to assist you with follow up care. 2. The Emergency Physician has interpreted your x-rays. The X-Ray specialist will also review them. If there is a change in the findings, you will be notified in 48 hours when at all possible. 3. A lab test or culture has been done, your results will be reviewed and you will be notified if you need a change in treatment. ADDITIONAL INSTRUCTIONS AND INFORMATION: 1. Your care today has been supervised by a physician who is specially trained in emergency care. Many problems require more than one evaluation for a complete diagnosis and treatment. We recommend that you schedule your follow up appointment as recommended to ensure complete treatment of you illness or injury. If you are unable to obtain follow up care and continue to have a problem, or if your condition worsens, we recommend that you return to the ED. 2. We are not able to safely determine your condition over the phone nor are we able to give sound medical advice over the phone. For these safety reasons, if you call for medical advice we will ask you to come to the ED for further evaluation. 3. If you have any questions regarding these discharge instructions please call the ED at [phone]. SAFETY INFORMATION: In the interest of safety, wellness, and injury prevention; we encourage you to wear your sealbelt, if you smoke; quite smoking, and we encourage family to use a protec tive helmet for bicycling and other sporting events that present an increased risk for head injury. IF YOUR SYMPTOMS WORSEN OR NEW SYMPTOMS DEVELOP, OR YOU HAVE CONCERNS ABOUT YOUR CONDITION; OR IF YOUR CONDITION WORSENS WHILE YOU ARE WAITING FOR YOUR FOLLOW UP APPOINTMENT; EITHER CONTACT YOUR PRIMARY CARE DOCTOR, THE PHYSICIAN WHOSE NAME AND NUMBER YOU WERE GIVEN, OR RETURN TO THE ED IMMEDIATELY. JAMES REILLY [facility] Jun 01, 2021 11:40
--- NOTE | 2021-06-01 11:48 | RAD ---
Exam Date: 06/01/2021 11:25 AM XR CHEST 1V Indication: Reason: cough, soa / Spl. Instructions: / History: . Comparison: May 29, 2021 FINDINGS/ IMPRESSION: The cardiac silhouette and pulmonary vasculature are within normal limits. There is no focal consolidation, pleural effusion or pneumothorax. The visualized osseous structures are intact. Electronically signed by: Quinn Alexander MD (06/01/2021 11:46 AM) [facility]
[2021-06-01 12:20] LABS: INFLUENZA A PATIENT NEGATIVE (NEGATIVE); INFLUENZA B PATIENT NEGATIVE (NEGATIVE)
[2021-06-01 12:34] VITALS: BP 100/70
== END 2021-06-01 12:55 | disposition home or self-care (01) ==
LOC: ER 10:50
DX: O26.893 Other specified pregnancy related conditions, third trimester (principal); R06.2 Wheezing; Z3A.35 35 weeks gestation of pregnancy; Z20.822 Contact with and (suspected) exposure to COVID-19
CPT/HCPCS: 71045; 87804; 99284; C9803; U0003

== ENCOUNTER 2021-06-01 19:15 | Emergency (ER) | payer OTHER ==
[~2021-06-01] VITALS: Ht 152.4 cm; Wt 97.5 kg
[2021-06-01 19:15] VITALS: BP 136/72
[2021-06-01] MEDS ORDERED: FLUORESCEIN 1MG EYE STRIP. OS ONE (19:45)
[2021-06-01] MEDS ORDERED: PROPARACAINE 0.5% OPHTH SOLUTION 15ML BOTTLE. OS ONE (19:45)
[2021-06-01] MEDS ORDERED: TETRACAINE 0.5% OPHTH SOLUTION 4ML BOTTLE. ONE (19:54)
--- NOTE | 2021-06-01 19:54 | PHYS DOC ---
Past History Past Medical History: No Pertinent History Additional Past Medical Histor: chronic back/jaw pain seasional allergies, miscarriage (HEIDI AGUILAR) Past Surgical History: Other Additional Past Surgical Histo: D&C 06/10/20 (HEIDI AGUILAR) Smoking: Cigarettes Alcohol Use: None Drug Use: None (HEIDI AGUILAR) General Adult EDM: Chief Complaint: EYE PROBLEMS Problems: (1) Left eye pain (HEIDI AGUILAR) HPI: HPI: Patient is a 30 year old female who presents with left eye pain since 14:00 this afternoon. Patient states she was assisting her 5-year-old with their shoes when her 2-year-old poked her in the eye. She states she is unaware whether the child poked her with their finger or a toy. Patient states initially her pain was 6/10, but has now increased to 8/10. She states the eye is red, has watery discharge, and is too painful to open. Patient denies headache, but is unsure if her visual acuity has changed, she is not able to open her eye. Patient has no other complaints at this time. (HEIDI AGUILAR) Review of Systems: Review of Systems: Constitutional: Denies fever or chills Eyes: See HPI HENT: Denies nasal congestion or sore throat Respiratory: Denies cough or shortness of breath Cardiovascular: Denies chest pain or edema GI: Denies abdominal pain, nausea, vomiting, bloody stools or diarrhea Musculoskeletal: Denies back pain or joint pain Integument: Denies laceration or rash Neurologic: Denies headache, focal weakness or sensory changes (HEIDI AGUILAR) Current Medications: Current Meds: Current Medications Medications (Trade) Dose Ordered Sig/Harley Start Time Stop Time Status Last Admin Dose Admin Fluorescein Sodium (Ful-Aggie 1mg) 1 strip 1X ONCE 06/01/21 19:45 06/01/21 19:46 UNV Proparacaine HCl (Proparacaine 0.5% Ophth) 1 drop 1X ONCE 06/01/21 19:45 06/01/21 19:46 UNV (HEIDI AGUILAR) Allergies: Allergies: Allergies Coded Allergies Type Severity Reaction Last Updated Verified No Known Drug Allergies 12/17/20 No (HEIDI AGUILAR) Physical Exam: PE: Constitutional: Patient appears in mild distress, will not open eyes. Well developed, well nourished, non-toxic appearance. [] HENT: Normocephalic, atraumatic, bilateral external ears normal, oropharynx moist, no oral exudates, nose normal. [] Eyes: Visual acuity intact, left eye blurred vision secondary to watery discharge. Left eye conjunctival injection, moderate amount of watery discharge, no corneal abrasion seen with fluorescein stain and Rao lamp. Right eye conjunctiva moist and pink, no discharge. Bilateral EOMI, PERRL. Neck: Normal range of motion, no tenderness, supple, no stridor. [] Cardiovascular:Heart rate regular rhythm, no murmur [] Skin: Warm, dry, no erythema, no rash. [] (HEIDI AGUILAR) EKG: EKG: [] (HEIDI AGUILAR) Radiology/Procedures: Radiology/Procedures: [] (HEIDI AGUILAR) Heart Score: C/O Chest Pain: N/A (HEIDI AGUILAR) Course & Med Decision Making: Course & Med Decision Making Pertinent Labs and Imaging studies reviewed. (See chart for details) After 2 drops of tetracaine in the left eye, patient is able to open without difficulty. She states the pain is significantly decreased. (HEIDI AGUILAR) Dragon Disclaimer: Dragon Disclaimer: This electronic medical record was generated, in whole or in part, using a voice recognition dictation system. (HEIDI AGUILAR) Departure Departure: Impression: Primary Impression: Left eye pain Disposition: HOME / SELF CARE / HOMELESS Condition: STABLE Referrals: TONIE BAH (PCP) Additional Instructions: Call your primary care provider for an ophthalmology referral. Keep your affected eye clean and dry. Use [id number] ibuprofen for pain and inflammation. Return to emergency department for changes in discharge (bloody, white, thick), worsening pain, or vision changes Attending Signature Attending Signature I have participated in the care of this patient and I have reviewed and agree with all pertinent clinical information above including history, exam, and recommendations. (CAMERON SUBRAMANIAN MD) HEIDI AGUILAR Jun 01, 2021 19:54 CAMERON SUBRAMANIAN MD Jun 03, 2021 07:18
[2021-06-01] MEDS ORDERED: TETRACAINE 0.5% OPHTH SOLUTION 4ML BOTTLE. OS ONE (21:00)
== END 2021-06-01 20:51 | disposition home or self-care (01) ==
LOC: ER 19:15
DX: H57.12 Ocular pain, left eye (principal); H53.8 Other visual disturbances; F17.210 Nicotine dependence, cigarettes, uncomplicated
CPT/HCPCS: 99283

== ENCOUNTER → 2021-10-19 | Outpatient (CLI) | payer OTHER ==
[~2021-10-19] MED LIST changes: +CLIN-95 PO; -CLIN300C9 PO; +OMEP10CA4 PO
--- NOTE | 2021-10-19 10:06 | RAD ---
EXAM: Pelvic sonogram. HISTORY: Left lower quadrant and pelvic pain. TECHNIQUE: Transabdominal and transvaginal sonographic imaging of the pelvis performed. COMPARISON: None. FINDINGS: The liver is normal in size. The liver is retroflexed. The endometrial stripe is normal in thickness, measuring 4.6 mm. The ovaries are normal in size and demonstrate normal blood flow. There is no pelvic free fluid. IMPRESSION: 1. Incidental retroflexed uterus. 2. Otherwise, unremarkable pelvic sonogram. Electronically signed by: Padmini Sagastume MD (10/19/2021 10:04 AM) [id number]
== END ==
LOC: US 09:21
PROVIDERS: ATTEND Physician Assistant Medical
DX: R10.32 Left lower quadrant pain (principal); R10.2 Pelvic and perineal pain
CPT/HCPCS: 76856

== ENCOUNTER → 2021-10-23 | Outpatient (CLI) | payer OTHER | LOC: LAB 13:59 | PROVIDERS: ATTEND Otolaryngology | DX: Z01.812 Encounter for preprocedural laboratory examination (principal); J34.2 Deviated nasal septum; Z20.822 Contact with and (suspected) exposure to COVID-19 | CPT/HCPCS: U0003 ==

== ENCOUNTER → 2021-10-27 | Day surgery (SDC) | payer OTHER ==
[~2021-10-27] MED LIST changes: +0.9 % SODIUM CHLORIDE 10 ML DISP.SYRIN. IV ONE; +ACETAMINOPHEN 500 MG TABLET PO ONE; +DEXAMETHASONE SOD PHOS 20 MG/5 ML VIAL. ONE; +GELATIN SPONGE SIZE 12-7MM SPONGE. ONE; +IPRATRPIUM/ALBUTEROL 0.5/2.5MG 3 ML NEBU. NEB PRN; +IV RINGERS SOLUTION,LACTATED 1,000 ML IV SCH; +KETOROLAC 30 MG/ML VIAL. ONE; +LIDOCAINE 1%/EPI 1:100,000 20 ML VIAL. IJ ONE; +LIDOCAINE 1%/EPI 1:100,000 20 ML VIAL. ONE; +LIDOCAINE 2% PF 5 ML VIAL. ONE; +MIDAZOLAM HCL PF 2 MG/2 ML VIAL. IV ONE; +MIDAZOLAM HCL PF 2 MG/2 ML VIAL. ONE; +ONDANSETRON PF 4 MG/2 ML VIAL. IV PRN; +ONDANSETRON PF 4 MG/2 ML VIAL. ONE; +PROPOFOL 10,000 MCG/ML (20ML) VIAL IV ONE; +SEVOFLURANE 31 TO 60 MINUTES. IH ONE
[2021-10-27 09:05] LABS: U PREG PATIENT NEGATIVE (NEG)
[2021-10-27 11:45] VITALS: BP 153/87
--- NOTE | 2021-10-27 11:47 | OP ---
DATE OF SURGERY: 10/27/2021 PREOPERATIVE DIAGNOSES: Nasal septal deviation and inferior nasal turbinate hypertrophy. POSTOPERATIVE DIAGNOSES: Nasal septal deviation and inferior nasal turbinate hypertrophy. PROCEDURES PERFORMED: Nasal septoplasty and radiofrequency reduction of the inferior nasal turbinates. INDICATIONS FOR THE PROCEDURE: Chronic nasal obstruction. ESTIMATED BLOOD LOSS: Less than 10 mL. DESCRIPTION OF PROCEDURE: The patient was brought to the operating room and placed on the operating room table in the supine position and she was given a general anesthetic. When her airway was safe and the table was rotated 90 degrees, her face was then prepped and draped and the nose was then examined. It was determined that there was a deviation of the nasal septum into the right nasal cavity with a longitudinal spur along the floor of the nasal septum and that both inferior turbinates were hypertrophied. The nose was decongested and the septum was infiltrated with 1% lidocaine with epinephrine, after which the inferior nasal turbinates were injected with normal saline and the radiofrequency wand was placed within the soft tissue of the inferior turbinates on each side and radiofrequency energy was applied until there was contraction of the turbinate mucosa after which a long nasal speculum was then used to outfracture both inferior nasal turbinates. Attention was then given to the nasal septum and a curvilinear incision was made along the mucocutaneous border on the left side and dissection carried down beneath the mucoperichondrium. This was accomplished through the length of the septum. A crossover incision was made, isolating the deviation into the right side of the nose and it was then gently removed using Jing forceps. A curvilinear deviation along the floor of the nasal septum was then modified by elevating the mucosa and then using an osteotome to sequentially separate the premaxillary crest that was deviated from the nasal septum. When this was accomplished and a midline position of the septum was created, the nose was then irrigated and no active bleeding was occurring. The mucous membrane was then reapproximated using a 3-0 chromic suture with a quilting-type suture pattern, after which the incision site was closed with 3-0 chromic and the nose was then irrigated. No active bleeding was occurring. Gelfoam was placed within the nasal cavity and the procedure was completed. The patient was then taken to the recovery room in stable condition. KIMBERLY DR: Iggy TID: [id number]
== END ==
LOC: SURG 08:04
PROVIDERS: ATTEND Otolaryngology
DX: J34.2 Deviated nasal septum (principal); J34.3 Hypertrophy of nasal turbinates; J34.89 Other specified disorders of nose and nasal sinuses; G44.029 Chronic cluster headache, not intractable; F41.9 Anxiety disorder, unspecified; J45.909 Unspecified asthma, uncomplicated; D64.9 Anemia, unspecified; K21.9 Gastro-esophageal reflux disease without esophagitis; E66.9 Obesity, unspecified; Z79.899 Other long term (current) drug therapy
CPT/HCPCS: 30520; 30801; 81025; A4657; J0171; J1100; J1885; J2001; J2250; J2405; J2704; J3010; J7120

== ENCOUNTER → 2021-11-06 | Outpatient (CLI) | payer OTHER ==
[2021-10-27 11:45] VITALS: BP 153/87
[~2021-11-06] MED LIST changes: -0.9 % SODIUM CHLORIDE 10 ML DISP.SYRIN. IV ONE; -ACETAMINOPHEN 500 MG TABLET PO ONE; -DEXAMETHASONE SOD PHOS 20 MG/5 ML VIAL. ONE; -GELATIN SPONGE SIZE 12-7MM SPONGE. ONE; -IPRATRPIUM/ALBUTEROL 0.5/2.5MG 3 ML NEBU. NEB PRN; -IV RINGERS SOLUTION,LACTATED 1,000 ML IV SCH; -KETOROLAC 30 MG/ML VIAL. ONE; -LIDOCAINE 1%/EPI 1:100,000 20 ML VIAL. IJ ONE; -LIDOCAINE 1%/EPI 1:100,000 20 ML VIAL. ONE; -LIDOCAINE 2% PF 5 ML VIAL. ONE; -MIDAZOLAM HCL PF 2 MG/2 ML VIAL. IV ONE; -MIDAZOLAM HCL PF 2 MG/2 ML VIAL. ONE; -ONDANSETRON PF 4 MG/2 ML VIAL. IV PRN; -ONDANSETRON PF 4 MG/2 ML VIAL. ONE; -PROPOFOL 10,000 MCG/ML (20ML) VIAL IV ONE; -SEVOFLURANE 31 TO 60 MINUTES. IH ONE
--- NOTE | 2021-11-06 10:25 | RAD ---
EXAM: Left shoulder, 3 views; cervical spine, 3 views; thoracic spine, 3 views. HISTORY: Pain. COMPARISON: None. FINDINGS: Left shoulder: 3 views of the left shoulder obtained. There is no fracture, dislocation or subluxatio n. Cervical spine: 3 views of the cervical spine are obtained. There is no listhesis. The vertebral bodi es are normal in height and the disc spaces are preserved. Thoracic spine: 3 views of the thoracic spine are obtained. There is no listhesis. The vertebral bodi es are normal in height and spaces are preserved. IMPRESSION: No acute osseous finding. Electronically signed by: Padmini Sagastume MD (11/06/2021 10:22 AM) [id number]
== END ==
LOC: RAD 09:37
PROVIDERS: ATTEND Physician Assistant
DX: M54.2 Cervicalgia (principal); M54.6 Pain in thoracic spine; M25.512 Pain in left shoulder; M79.2 Neuralgia and neuritis, unspecified
CPT/HCPCS: 72040; 72072; 73030